=== PATIENT | male | born 1950 | race Caucasian/White ===

== ENCOUNTER 2017-05-06 16:30 | Inpatient (IN) | payer OTHER ==
[~2017-05-06] VITALS: Ht 165.1 cm; Wt 49.6 kg
[2017-05-06] MEDS ORDERED: methylPREDNISolone SOD SUCC PF 125 MG/2 ML VIAL. IV ONE (17:15)
[2017-05-06] MEDS ORDERED: ALBUTEROL SULFATE 2.5 MG/3 ML NEBU. INH ONE (17:15)
[2017-05-06] MEDS ORDERED: IPRATRPIUM/ALBUTEROL 0.5/2.5MG 3 ML NEBU. NEB ONE (17:15)
[2017-05-06 17:29] LABS: BASO # 0.1 x10^3/uL (0.0-0.2); BASO % 1 % (0-3); EOS % 0 % (0-3); HEMATOCRIT 49.4 % (39.0-53.0); HEMOGLOBIN 16.1 g/dL (13.0-17.5); LYMPH # 0.8 x10^3/uL (1.0-4.8); LYMPH % 8 % (24-48); MEAN CORPUSCULAR HEMOGLOBIN 32 pg (25-35); MEAN CORPUSCULAR HGB CONC 33 g/dL (31-37); MEAN CORPUSCULAR VOLUME 97 fL (79-100); MONO % 8 % (0-9); NEUT % 83 % (31-73); PLATELET COUNT 483 x10^3/uL (140-400); RED BLOOD COUNT 5.11 x10^6/uL (4.30-5.70); RED CELL DISTRIBUTION WIDTH 12.8 % (11.5-14.5); WHITE BLOOD COUNT 10.7 x10^3/uL (4.0-11.0)
[2017-05-06 17:40] LABS: PROTHROMBIN TIME PATIENT 12.3 SEC (11.7-14.0)
[2017-05-06 17:42] LABS: CALCIUM 9.8 mg/dL (8.5-10.1); CREATININE 0.6 mg/dL (0.7-1.3); GFR 134.8; POTASSIUM 3.8 mmol/L (3.5-5.1)
[2017-05-06 17:48] LABS: ALBUMIN 3.7 g/dL (3.4-5.0); ALBUMIN/GLOBULIN RATIO 0.9 (1.0-1.7); TOTAL BILIRUBIN 0.3 mg/dL (0.2-1.0)
--- NOTE | 2017-05-06 18:14 | EKG ---
[facility] [address] [place] [address] Test Date: 2017-05-06 Test Time: 18:11:54 Pat Name: ALEXANDRU BAZAN Department: Room: Gender: M Senior Research Associate: TW : 1950 Requested By: ADEEL GALINDO Order Number: [id number] Reading MD: Kevin Vera MD Measurements Intervals [place] Rate: 103 P: 90 NM: 142 QRS: 105 QRSD: 96 T: 67 QT: 352 QTc: 463 Interpretive Statements SINUS TACHYCARDIA NON-SPECIFIC ST/T CHANGES Electronically Signed On 05-09-2017 10:59:02 RESIDENTIAL PROGRAM COORDINATOR by Kevin Vera MD
[2017-05-06] MEDS ORDERED: AZITHRMYCN 500MG IVPB FOR OMNI 250 ML IV ONE (19:45)
[2017-05-06] MEDS ORDERED: ACETAMINOPHEN 325 MG TABLET. PO PRN (19:45)
[2017-05-06] MEDS ORDERED: AZITHROMYCIN 500 MG in IV NORMAL SALINE 250ML 250 ML IV ONE ×2 (19:45→20:00)
[2017-05-06] MEDS ORDERED: ONDANSETRON PF 4 MG/2 ML VIAL. IV PRN (19:45)
[2017-05-06 19:53] VITALS: BP 93/58
[2017-05-06] MEDS ORDERED: guaiFENesin DM 200MG/20MG 10 ML SYRUP PO PRN (20:00)
[2017-05-06] MEDS ORDERED: diphenhydrAMINE HCL 25 MG CAPSULE PO PRN (20:00)
[2017-05-06] MEDS: IPRATRPIUM/ALBUTEROL 0.5/2.5MG 3 ML NEBU. NEB SCH (20:00)
[2017-05-06] MEDS ORDERED: cefTRIAXone IV Push 1 GM VIAL. IVP ONE (20:00)
--- NOTE | 2017-05-06 20:43 | PHYS DOC ---
Past Medical History Past Medical History: COPD Additional Past Medical Histor: EMPHYSEMA Past Surgical History: No Surgical History Additional Information: 1 PPD Alcohol Use: Rarely Drug Use: None Adult General Chief Complaint Chief Complaint: SHORTNESS OF BREATH HPI HPI Patient is a 66 year old male who presents with shortness of breath. Patient reports one week history of progressive dyspnea at rest with wheezing. Reports associated cough productive of white/yellow sputum. Denies fevers or chills, chest pain, lower extremity pain or swelling. He has history of COPD and denies any relief with use of home inhalers. He has history of previous admission for COPD exacerbation. He continues to smoke one pack per day. Denies any history of CAD or CHF. Does not have a primary care physician. He is homeless. Review of Systems Review of Systems Constitutional: Denies fever or chills Eyes: Denies change in visual acuity HENT: Denies nasal congestion or sore throat Respiratory: Port's cough and shortness of breath Cardiovascular: Denies chest pain or edema GI: Denies abdominal pain, nausea, vomiting Musculoskeletal: Denies back pain or joint pain Integument: Denies rash or skin lesions Neurologic: Denies headache, focal weakness or sensory changes All other systems were reviewed and found to be within normal limits, except as documented in this note. Current Medications Current Medications Current Medications Medications (Trade) Dose Ordered Sig/Link Start Time Stop Time Status Last Admin Dose Admin Albuterol Sulfate (Ventolin Neb Soln) 5 mg 1X ONCE 05/06/17 17:15 05/06/17 17:30 DC 05/06/17 17:33 5 MG Albuterol/ Ipratropium (Duoneb) 3 ml 1X ONCE 05/06/17 17:15 05/06/17 17:30 DC 05/06/17 17:32 3 ML Methylprednisolone Sodium Succinate (SOLU-Medrol 125MG VIAL) 125 mg 1X ONCE 05/06/17 17:15 05/06/17 17:30 DC 05/06/17 18:00 125 MG Allergies Allergies Allergies Coded Allergies Type Severity Reaction Last Updated Verified No Known Drug Allergies 05/06/17 No Physical Exam Physical Exam Constitutional: Well developed, well nourished, no acute distress, non-toxic appearance. Poor hygiene HENT: Normocephalic, atraumatic, bilateral external ears normal, oropharynx moist, nose normal. Diffuse dental decay Eyes: conjunctiva normal, no discharge. Neck: supple, no stridor. Cardiovascular: RRR, no murmurs, no edema. Lungs & Thorax: Tight throughout, few expiratory wheezes, LCTAB, no respiratory distress. Abdomen: soft, nontender, nondistended. Skin: Warm, dry, no erythema, no rash. Back: No tenderness. Extremities: No tenderness, no edema. No calf tenderness or swelling. Neurologic: Alert and oriented X 3, no focal deficits noted. Psychologic: Affect normal, judgement normal, mood normal. Current Patient Data Vital Signs Vital Signs Date Time Temp Pulse Resp B/P (MAP) Pulse Ox O2 Delivery O2 Flow Rate FiO2 05/06/17 18:30 100 20 119/79 (92) 93 Nasal Cannula 2.0 05/06/17 16:30 98.2 98.2 Lab Values Laboratory Tests Test 05/06/17 16:47 White Blood Count 10.7 x10^3/uL (4.0-11.0) Red Blood Count 5.11 x10^6/uL (4.30-5.70) Hemoglobin 16.1 g/dL (13.0-17.5) Hematocrit 49.4 % (39.0-53.0) Mean Corpuscular Volume 97 fL (79-100) Mean Corpuscular Hemoglobin 32 pg (25-35) Mean Corpuscular Hemoglobin Concent 33 g/dL (31-37) Red Cell Distribution Width 12.8 % (11.5-14.5) Platelet Count 483 x10^3/uL (140-400) H Neutrophils (%) (Auto) 83 % (31-73) H Lymphocytes (%) (Auto) 8 % (24-48) L Monocytes (%) (Auto) 8 % (0-9) Eosinophils (%) (Auto) 0 % (0-3) Basophils (%) (Auto) 1 % (0-3) Neutrophils # (Auto) 8.9 x10^3uL (1.8-7.7) H Lymphocytes # (Auto) 0.8 x10^3/uL (1.0-4.8) L Monocytes # (Auto) 0.9 x10^3/uL (0.0-1.1) Eosinophils # (Auto) 0.0 x10^3/uL (0.0-0.7) Basophils # (Auto) 0.1 x10^3/uL (0.0-0.2) Prothrombin Time 12.3 SEC (11.7-14.0) Prothrombin Time INR 1.0 (0.8-1.1) PTT 32 SEC (24-38) Sodium Level 143 mmol/L (136-145) Potassium Level 3.8 mmol/L (3.5-5.1) Chloride Level 102 mmol/L (98-107) Carbon Dioxide Level 38 mmol/L (21-32) H Anion Gap 3 (6-14) L Blood Urea Nitrogen 12 mg/dL (8-26) Creatinine 0.6 mg/dL (0.7-1.3) L Estimated GFR (Cockcroft-Gault) 134.8 BUN/Creatinine Ratio 20 (6-20) Glucose Level 62 mg/dL (70-99) L Calcium Level 9.8 mg/dL (8.5-10.1) Total Bilirubin 0.3 mg/dL (0.2-1.0) Aspartate Amino Transferase (AST) 21 U/L (15-37) Alanine Aminotransferase (ALT) 15 U/L (16-63) L Alkaline Phosphatase 123 U/L (46-116) H Troponin I Quantitative < 0.017 ng/mL (0.000-0.055) KD-Saz-N-Type Natriuretic Peptide 120 pg/mL (0-124) Total Protein 8.0 g/dL (6.4-8.2) Albumin 3.7 g/dL (3.4-5.0) Albumin/Globulin Ratio 0.9 (1.0-1.7) L Laboratory Tests 05/06/17 16:47 Laboratory Tests 05/06/17 16:47 EKG EKG Interpreted by me: Sinus tachycardia rate 103, no acute ST or T wave changes, normal intervals, no ectopy.[] Radiology/Procedures Radiology/Procedures CXR, portable: interpreted by me: right middle lobe infiltrate, no cardiomegaly, no pneumothorax, diaphragmatic flattening on the left, elevated right hemidiaphragm.[] Course & Med Decision Making Course & Med Decision Making Pertinent Labs and Imaging studies reviewed. (See chart for details) Presents with COPD exacerbation. Gave DuoNeb and albuterol treatments as well as Solu-Medrol. Obtained labs, EKG, chest x-ray. The patient felt better, lungs less tight on repeat exam. However experiencing oxygen desaturation to 88% on room air while at rest, persistently dyspneic. He is not on home oxygen. Recommend admission for further pulmonary evaluation & treatment. The patient agrees with plan of care. Discussed with Dr. Ricketts who agrees to admit to inpatient status. The patient is admitted in stable condition.[] Dragon Disclaimer Dragon Disclaimer This electronic medical record was generated, in whole or in part, using a voice recognition dictation system. Departure Departure Impression: Primary Impression: COPD exacerbation Disposition: ADMITTED INPATIENT Condition: STABLE ADEEL GALINDO MD May 06, 2017 20:43
[2017-05-07] MEDS ORDERED: PNEUMOCOCCAL VAX SCREEN BY RX. MC ONE
[2017-05-07] MEDS ORDERED: INFLUENZA VAX SCREEN BY RX. MC ONE
[2017-05-07] MEDS ORDERED: PROAIR HFA8.5 GM INH (02:30)
[2017-05-07] MEDS ORDERED: FLUT1DIS3 IH (02:30)
[2017-05-07 03:20] VITALS: BP 100/59
[2017-05-07 06:04] LABS: BASO % 0 % (0-3); EOS % 0 % (0-3); HEMATOCRIT 43.9 % (39.0-53.0); HEMOGLOBIN 14.4 g/dL (13.0-17.5); LYMPH # 0.6 x10^3/uL (1.0-4.8); LYMPH % 12 % (24-48); MEAN CORPUSCULAR HEMOGLOBIN 32 pg (25-35); MEAN CORPUSCULAR HGB CONC 33 g/dL (31-37); MEAN CORPUSCULAR VOLUME 96 fL (79-100); MONO % 3 % (0-9); NEUT % 84 % (31-73); PLATELET COUNT 412 x10^3/uL (140-400); RED BLOOD COUNT 4.57 x10^6/uL (4.30-5.70); WHITE BLOOD COUNT 4.7 x10^3/uL (4.0-11.0)
[2017-05-07 06:40] LABS: CREATININE 0.7 mg/dL (0.7-1.3); GFR 112.8; POTASSIUM 4.4 mmol/L (3.5-5.1)
[2017-05-07 07:08] VITALS: BP 100/62
[2017-05-07] MEDS: IPRATRPIUM/ALBUTEROL 0.5/2.5MG 3 ML NEBU. NEB SCH ×3 (07:52→14:59)
--- NOTE | 2017-05-07 08:08 | RAD ---
EXAM: Chest, single view. HISTORY: Shortness of air. COMPARISON: None. FINDINGS: A frontal view of the chest is obtained. There is emphysema. There is right apical opacity possibly due to pleural parenchymal scarring. There is no effusion or pneumothorax. The heart is normal in size. IMPRESSION: 1. Right apical opacity likely due to pleural-parenchymal scarring. The possibility of a right apical nodule is not excluded. In the absence of prior studies to confirm stability, short-term radiographic or CT follow-up is recommended. 2. Emphysema.
[2017-05-07] MEDS ORDERED: guaiFENesin DM 200MG/20MG 10 ML SYRUP PO PRN (08:45)
[2017-05-07] MEDS ORDERED: ONDANSETRON PF 4 MG/2 ML VIAL. IV PRN (08:45)
[2017-05-07] MEDS ORDERED: PNEUMOC CONJ VACC 23-VALENT 0.5 ML VIAL. VAX IM ONE (09:00)
[2017-05-07] MEDS ORDERED: FLU VACC QS2017-18 (36MOS+)/PF 0.5 ML SYRINGE. VAX IM ONE (09:00)
--- NOTE | 2017-05-07 09:38 | PDOC1 ---
History and Physical Date of Admission Date of Admission DATE: 05/07/17 TIME: 09:32 Identification/Chief Complaint Chief Complaint cough Problems: Source Source: Caregiver, Chart review, Patient History of Present Illness History of Present Illness 66 y.o 2 pack a day smoker male, cough, productive, voluminous in amt , denies fever, still smokes. Was admitted in [facility] [place] [facility] this yr for PNA. WBC ok, no fevers, CXR shows RT apical nodule or scarring (seems new to him), unsure if infiltrate or nodule and some haziness,. Just with my short conversation with him while he was eating breakfast, he coughed signif amt of sputum with signif amt of food in it and took signif time for him to recover and talk to me again, NO blood or hemoptysis,. VEry thin, minimal subQ, smoker's body habitus, Emphysematous changes appreciable on plain CXR Past Medical History Pulmonary: Asthma, Bronchitis Psych: Addictions Musculoskeletal: low back pain Past Surgical History Past Surgical History: No pertinent history Family History Family History: Family History Unknown Social History Smoke: 2 packs per day ALCOHOL: none Drugs: None Current Problem List Problem List Problems Medical Problems: (1) COPD exacerbation Status: Acute Problems: Current Medications Current Medications Current Medications Albuterol/ Ipratropium (Duoneb) 3 ml 1X ONCE NEB Last administered on 17:32; Start 05/06/17 at 17:15; Stop 05/06/17 at 17:30; Status DC Albuterol Sulfate (Ventolin Neb Soln) 5 mg 1X ONCE INH Last administered on 17:33; Start 05/06/17 at 17:15; Stop 05/06/17 at 17:30; Status DC Methylprednisolone Sodium Succinate (SOLU-Medrol 125MG VIAL) 125 mg 1X ONCE IV Last administered on 05/06/17 18:00; Start 05/06/17 at 17:15; Stop at 17:30; Status DC Ondansetron HCl (Zofran) 4 mg PRN Q8HRS PRN IV NAUSEA/VOMITING; Start at 19:45; Stop 05/07/17 at 08:39; Status DC Acetaminophen (Tylenol) 650 mg PRN Q4HRS PRN PO FEVER; Start 05/06/17 at 19:45 ; Stop 05/07/17 at 19:44 Albuterol/ Ipratropium (Duoneb) 3 ml RTQID NEB Last administered on 05/07/17 07:52; Start 05/06/17 at 20:00; Stop 05/07/17 at 19:59 Ceftriaxone Sodium 50 ml @ 100 mls/hr 1X ONCE IV ; Start 05/06/17 at 19:45; Stop 05/06/17 at 20:14; Status Cancel Azithromycin 500 mg/Sodium Chloride 250 ml @ 250 mls/hr 1X ONCE IV ; Start at 19:45; Stop 05/06/17 at 20:44; Status UNV Azithromycin 250 ml @ 250 mls/hr 1X ONCE IV ; Start 05/06/17 at 19:45; Stop 05/06/17 at 20:44; Status Cancel Guaifenesin (Robitussin Dm) 10 ml PRN Q6HRS PRN PO COUGH 1ST CHOICE; Start 04/12 at 20:00 Diphenhydramine HCl (Benadryl) 25 mg PRN QHS PRN PO INSOMNIA; Start 05/06/17 at 20:00 Azithromycin 500 mg/Sodium Chloride 250 ml @ 250 mls/hr 1X ONCE IV Last administered on 05/06/17 20:28; Start 05/06/17 at 20:00; Stop 05/06/17 at 20 :59; Status DC Ceftriaxone Sodium (Rocephin) 1 gm 1X ONCE IVP Last administered on 22:58; Start 05/06/17 at 20:00; Stop 05/06/17 at 20:01; Status DC Info (Do NOT chart on this placeholder) 1 each 1X ONCE MC ; Start 05/07/17 at 00:00; Stop 05/07/17 at 00:01; Status UNV Pneumococcal Polyvalent Vaccine (Do NOT chart on this placeholder) 1 each 1X ONCE MC ; Start 05/07/17 at 00:00; Stop 05/07/17 at 00:01; Status UNV Influenza Virus Vaccine Quadrival (Fluarix Quad 9630-4900 Syringe) 0.5 ml ONCE ONCE VAX IM Last administered on 05/07/17 08:16; Start 05/07/17 at 09:00; Stop 05/07/17 at 09:01; Status DC Pneumococcal Polyvalent Vaccine (Pneumovax 23) 0.5 ml ONCE ONCE VAX IM Last administered on 05/07/17t 08:15; Start 05/07/17 at 09:00; Stop 05/07/17 at 09 :01; Status DC Ondansetron HCl (Zofran) 4 mg PRN Q6HRS PRN IV NAUSEA/VOMITING; Start at 08:45; Stop 05/08/17 at 08:44 Guaifenesin (Robitussin Dm) 10 ml PRN Q6HRS PRN PO COUGH; Start 05/07/17 at 08 :45; Stop 05/07/17 at 08:45; Status DC Active Scripts Active Reported Advair 250-50 Diskus (Fluticasone/Salmeterol) 1 Each Disk.w.dev 1 Inh IH BID Proair Hfa Inhaler (Albuterol Sulfate) 8.5 Gm Hfa.aer.ad 1 Puff INH PRN Q6HRS PRN Allergies Allergies: Coded Allergies: No Known Drug Allergies (Unverified , 05/06/17) ROS General: YES: Fatigue, Other (weight loss??) Eyes: No Blurry vision, No Decreased vision, No Double vision, No Dry eyes, No Excessive tearing, No Eye Pain, No Itchy Eyes, No Loss of vision, No Photophobia , No Scotomata, No Uses contacts, No Uses glasses, No Other ALLERGY AND IMMUNOLOGY: No: Hives, Insect Bite Sensitivity, Itchy/Watery Eyes, Nasal Congestion, Post Nasal Drip, Seasonal Allergies, Other Hematological and Lymphatic: No: Bleeding Problems, Blood Clots, Blood Transfusions, Brusing, Night Sweats, Pallor, Swollen Lymph Nodes, Other ENDOCRINE: No: Breast Changes, Galactorrhea, Hair Pattern Changes, Hot Flashes , Malaise/lethargy, Mood Swings, Palpitations, Polydipsia/polyuria, Skin Changes , Temperature Intolerance, Unexpected Weight Changes, Other Breast: No New/Changing Breast Lumps, No Nipple changes, No Nipple discharge, No Other Respiratory: YES: Cough, Shortness of breath, SOB with excertion, Sputum Changes Cardiovascular: No Chest Pain, No Palpitations, No Orthopnea, No Paroxysmal Noc. Dyspnea, No Edema, No Lt Headedness, No Other Gastrointestinal: No Nausea, No Vomiting, No Abdominal Pain, No Diarrhea, No Constipation, No Melena, No Hematochezia, No Other Genitourinary: No Dysuria, No Frequency, No Incontinence, No Hematuria, No Retention, No Discharge, No Urgency, No Pain, No Flank Pain, No Other, No , No , No , No , No , No , No Musculoskeletal: No Gait Disturbance, No Joint Pain, No Joint Stiffness, No Joint Swelling, No Muscle Pain, No Muscular Weakness, No Pain In:, No Swelling In:, No Other Skin: No Dry Skin, No Eczema, No Hair Changes, No Lumps, No Mole Changes, No Mottling, No Nail Changes, No Pruritus, No Rash, No Skin Lesion Changes, No Other, No Acne Physical Exam General: No acute distress, Other (cachectic, smoker's body habitus, coughing spells) Lungs: Normal air movement, Other (dec BS, no wheezes) Heart: RRR, no thrills, no rubs, no gallops, no murmurs Cardiovascular: S1, S2 Breasts: Normal, Rt breast nml w/o mass, Lt breast nml w/o mass, Nipples normal Abdomen: Normal bowel sounds, Soft, No tenderness, No hepatosplenomegaly, No masses Male Genitals Exam: normal genitalia, normal prostate Rectal Exam: not examined PELVIC: Nml ext genitalia Extremities: No clubbing, No cyanosis, No edema, Normal pulses, No tenderness/ swelling Skin: No rashes, No breakdown, No significant lesion Neuro: Normal gait, Normal speech, Strength at 5/5 X4 ext, Normal tone, Sensation intact, Cranial nerves 3-12 NL, Reflexes 2+ Psych/Mental Status: Mental status NL, Mood NL Vitals Vitals Vital Signs Date Time Temp Pulse Resp B/P (MAP) Pulse Ox O2 Delivery O2 Flow Rate FiO2 05/07/17 08:15 Nasal Cannula 2.0 05/07/17 07:56 98 05/07/17 07:08 98.5 82 18 100/62 (75) 98.5 Labs Labs Laboratory Tests Test 05/06/17 16:47 05/07/17 05:50 White Blood Count 10.7 x10^3/uL (4.0-11.0) 4.7 x10^3/uL (4.0-11.0) Red Blood Count 5.11 x10^6/uL (4.30-5.70) 4.57 x10^6/uL (4.30-5.70) Hemoglobin 16.1 g/dL (13.0-17.5) 14.4 g/dL (13.0-17.5) Hematocrit 49.4 % (39.0-53.0) 43.9 % (39.0-53.0) Mean Corpuscular Volume 97 fL (79-100) 96 fL (79-100) Mean Corpuscular Hemoglobin 32 pg (25-35) 32 pg (25-35) Mean Corpuscular Hemoglobin Concent 33 g/dL (31-37) 33 g/dL (31-37) Red Cell Distribution Width 12.8 % (11.5-14.5) 13.0 % (11.5-14.5) Platelet Count 483 x10^3/uL (140-400) 412 x10^3/uL (140-400) Neutrophils (%) (Auto) 83 % (31-73) 84 % (31-73) Lymphocytes (%) (Auto) 8 % (24-48) 12 % (24-48) Monocytes (%) (Auto) 8 % (0-9) 3 % (0-9) Eosinophils (%) (Auto) 0 % (0-3) 0 % (0-3) Basophils (%) (Auto) 1 % (0-3) 0 % (0-3) Neutrophils # (Auto) 8.9 x10^3uL (1.8-7.7) 3.9 x10^3uL (1.8-7.7) Lymphocytes # (Auto) 0.8 x10^3/uL (1.0-4.8) 0.6 x10^3/uL (1.0-4.8) Monocytes # (Auto) 0.9 x10^3/uL (0.0-1.1) 0.2 x10^3/uL (0.0-1.1) Eosinophils # (Auto) 0.0 x10^3/uL (0.0-0.7) 0.0 x10^3/uL (0.0-0.7) Basophils # (Auto) 0.1 x10^3/uL (0.0-0.2) 0.0 x10^3/uL (0.0-0.2) Prothrombin Time 12.3 SEC (11.7-14.0) Prothromb Time International Ratio 1.0 (0.8-1.1) Activated Partial Thromboplast Time 32 SEC (24-38) Sodium Level 143 mmol/L (136-145) 139 mmol/L (136-145) Potassium Level 3.8 mmol/L (3.5-5.1) 4.4 mmol/L (3.5-5.1) Chloride Level 102 mmol/L (98-107) 102 mmol/L (98-107) Carbon Dioxide Level 38 mmol/L (21-32) 33 mmol/L (21-32) Anion Gap 3 (6-14) 4 (6-14) Blood Urea Nitrogen 12 mg/dL (8-26) 11 mg/dL (8-26) Creatinine 0.6 mg/dL (0.7-1.3) 0.7 mg/dL (0.7-1.3) Estimated GFR (Cockcroft-Gault) 134.8 112.8 BUN/Creatinine Ratio 20 (6-20) Glucose Level 62 mg/dL (70-99) 132 mg/dL (70-99) Calcium Level 9.8 mg/dL (8.5-10.1) 9.0 mg/dL (8.5-10.1) Total Bilirubin 0.3 mg/dL (0.2-1.0) Aspartate Amino Transf (AST/SGOT) 21 U/L (15-37) Alanine Aminotransferase (ALT/SGPT) 15 U/L (16-63) Alkaline Phosphatase 123 U/L (46-116) Troponin I Quantitative < 0.017 ng/mL (0.000-0.055) KS-Vgz-J-Type Natriuretic Peptide 120 pg/mL (0-124) Total Protein 8.0 g/dL (6.4-8.2) Albumin 3.7 g/dL (3.4-5.0) Albumin/Globulin Ratio 0.9 (1.0-1.7) Laboratory Tests Test 05/06/17 16:47 05/07/17 05:50 White Blood Count 10.7 x10^3/uL (4.0-11.0) 4.7 x10^3/uL (4.0-11.0) Red Blood Count 5.11 x10^6/uL (4.30-5.70) 4.57 x10^6/uL (4.30-5.70) Hemoglobin 16.1 g/dL (13.0-17.5) 14.4 g/dL (13.0-17.5) Hematocrit 49.4 % (39.0-53.0) 43.9 % (39.0-53.0) Mean Corpuscular Volume 97 fL (79-100) 96 fL (79-100) Mean Corpuscular Hemoglobin 32 pg (25-35) 32 pg (25-35) Mean Corpuscular Hemoglobin Concent 33 g/dL (31-37) 33 g/dL (31-37) Red Cell Distribution Width 12.8 % (11.5-14.5) 13.0 % (11.5-14.5) Platelet Count 483 x10^3/uL (140-400) 412 x10^3/uL (140-400) Neutrophils (%) (Auto) 83 % (31-73) 84 % (31-73) Lymphocytes (%) (Auto) 8 % (24-48) 12 % (24-48) Monocytes (%) (Auto) 8 % (0-9) 3 % (0-9) Eosinophils (%) (Auto) 0 % (0-3) 0 % (0-3) Basophils (%) (Auto) 1 % (0-3) 0 % (0-3) Neutrophils # (Auto) 8.9 x10^3uL (1.8-7.7) 3.9 x10^3uL (1.8-7.7) Lymphocytes # (Auto) 0.8 x10^3/uL (1.0-4.8) 0.6 x10^3/uL (1.0-4.8) Monocytes # (Auto) 0.9 x10^3/uL (0.0-1.1) 0.2 x10^3/uL (0.0-1.1) Eosinophils # (Auto) 0.0 x10^3/uL (0.0-0.7) 0.0 x10^3/uL (0.0-0.7) Basophils # (Auto) 0.1 x10^3/uL (0.0-0.2) 0.0 x10^3/uL (0.0-0.2) Prothrombin Time 12.3 SEC (11.7-14.0) Prothromb Time International Ratio 1.0 (0.8-1.1) Activated Partial Thromboplast Time 32 SEC (24-38) Sodium Level 143 mmol/L (136-145) 139 mmol/L (136-145) Potassium Level 3.8 mmol/L (3.5-5.1) 4.4 mmol/L (3.5-5.1) Chloride Level 102 mmol/L (98-107) 102 mmol/L (98-107) Carbon Dioxide Level 38 mmol/L (21-32) 33 mmol/L (21-32) Anion Gap 3 (6-14) 4 (6-14) Blood Urea Nitrogen 12 mg/dL (8-26) 11 mg/dL (8-26) Creatinine 0.6 mg/dL (0.7-1.3) 0.7 mg/dL (0.7-1.3) Estimated GFR (Cockcroft-Gault) 134.8 112.8 BUN/Creatinine Ratio 20 (6-20) Glucose Level 62 mg/dL (70-99) 132 mg/dL (70-99) Calcium Level 9.8 mg/dL (8.5-10.1) 9.0 mg/dL (8.5-10.1) Total Bilirubin 0.3 mg/dL (0.2-1.0) Aspartate Amino Transf (AST/SGOT) 21 U/L (15-37) Alanine Aminotransferase (ALT/SGPT) 15 U/L (16-63) Alkaline Phosphatase 123 U/L (46-116) Troponin I Quantitative < 0.017 ng/mL (0.000-0.055) UK-Qzj-W-Type Natriuretic Peptide 120 pg/mL (0-124) Total Protein 8.0 g/dL (6.4-8.2) Albumin 3.7 g/dL (3.4-5.0) Albumin/Globulin Ratio 0.9 (1.0-1.7) VTE Prophylaxis Ordered VTE Prophylaxis Devices: Yes VTE Pharmacological Prophylaxi: Yes Assessment/Plan Assessment/Plan 1. COPD exacerbation, emphysematous type in an active smoker - 2ppday 2. Acute hypoxic respi failure 3. 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 Pulmo nodule apical vs scarring 6. Addiction to nicotine PLAN: Admit [address] chest with IV to further eval CXR findings Nicotine patch PT/OT Nutrition consult Would consult RIB TRIM SEPARATOR given events this AM with me COugh med, neb, Solu 40 IV TD Pulmo Consult Empiric abx Sputum GS and cx - though usually low yield Dw hi asa RN INDIRA Claire MD May 07, 2017 09:38
[2017-05-07] MEDS: guaiFENesin DM 200MG/20MG 10 ML SYRUP PO SCH ×4 (10:12→20:30)
[2017-05-07] MEDS: BENZONATATE 100 MG CAPSULE. PO SCH ×3 (10:12→20:30)
[2017-05-07] MEDS: AZITHROMYCIN 250 MG TABLET. PO SCH (10:12)
[2017-05-07] MEDS: NICOTINE 21MG PATCH. TD PRN (10:13)
[2017-05-07] MEDS: methylPREDNISolone SOD SUCC PF 40 MG/ML VIAL. IV SCH ×3 (10:13→20:30)
[2017-05-07] MEDS ORDERED: CONTRAST GIVEN MC PRN (10:30)
[2017-05-07 10:40] VITALS: BP 110/57
[2017-05-07] MEDS ORDERED: IOHEXOL 300 MG/ML 100ML VIAL. IV ONE (10:45)
--- NOTE | 2017-05-07 11:25 | RAD ---
EXAM: Chest CT with intravenous contrast. HISTORY: Right apical nodule. TECHNIQUE: Computed tomographic images of the chest were obtained following the administration of 75 cc Omnipaque 300 intravenous contrast. Multiplanar reformatting was performed. COMPARISON: Chest radiograph obtained on the same date. FINDINGS: There is a 3.0 cm slightly irregular triangular pleural-based opacity at the posterior right lung apex, the appearance of which favors pleural-parenchymal scarring rather than neoplasm or infiltrate. There is patchy and groundglass nodular infiltrate within the bilateral lower lobes with bilateral lower lobe bronchial wall thickening and mucous plugging. There is no pneumothorax or pleural effusion. There is moderate emphysema. There is a 3 mm nodule within the right middle lobe. There are a few calcified granulomas. The heart is normal in size. No pathologically enlarged lymph node is seen. There is hepatic steatosis. No suspicious osseous lesion is seen. IMPRESSION: 1. 3.0 cm irregular triangular pleural-based opacity at the right lung apex, the appearance of which favors pleural-parenchymal scarring rather than neoplasm or infiltrate. Short-term follow-up in approximately 3 months is recommended to confirm stability. 2. Bilateral lower lobe patchy and groundglass infiltrate with bronchial wall thickening and mucous plugging. Attention at the time of follow-up is recommended to confirm resolution. 3. Emphysema. 4. 3 mm noncalcified nodule within the right middle lobe. Attention at the time of aforementioned short-term follow-up is recommended. PQRS Compliance Statement: One or more of the following individualized dose reduction techniques were utilized for this examination: 1. Automated exposure control 2. Adjustment of the mA and/or kV according to patient size 3. Use of iterative reconstruction technique
--- NOTE | 2017-05-07 13:41 | PDOC ---
PULMONARY PROGRESS NOTES Vitals Vital Signs Date Time Temp Pulse Resp B/P (MAP) Pulse Ox O2 Delivery O2 Flow Rate FiO2 05/07/17 11:31 Nasal Cannula 2.0 05/07/17 10:40 98.6 69 18 110/57 (74) 97 98.6 Cardiovascular: S1, S2 Labs Laboratory Tests Test 05/06/17 16:47 05/07/17 05:50 White Blood Count 10.7 x10^3/uL (4.0-11.0) 4.7 x10^3/uL (4.0-11.0) Red Blood Count 5.11 x10^6/uL (4.30-5.70) 4.57 x10^6/uL (4.30-5.70) Hemoglobin 16.1 g/dL (13.0-17.5) 14.4 g/dL (13.0-17.5) Hematocrit 49.4 % (39.0-53.0) 43.9 % (39.0-53.0) Mean Corpuscular Volume 97 fL (79-100) 96 fL (79-100) Mean Corpuscular Hemoglobin 32 pg (25-35) 32 pg (25-35) Mean Corpuscular Hemoglobin Concent 33 g/dL (31-37) 33 g/dL (31-37) Red Cell Distribution Width 12.8 % (11.5-14.5) 13.0 % (11.5-14.5) Platelet Count 483 x10^3/uL (140-400) 412 x10^3/uL (140-400) Neutrophils (%) (Auto) 83 % (31-73) 84 % (31-73) Lymphocytes (%) (Auto) 8 % (24-48) 12 % (24-48) Monocytes (%) (Auto) 8 % (0-9) 3 % (0-9) Eosinophils (%) (Auto) 0 % (0-3) 0 % (0-3) Basophils (%) (Auto) 1 % (0-3) 0 % (0-3) Neutrophils # (Auto) 8.9 x10^3uL (1.8-7.7) 3.9 x10^3uL (1.8-7.7) Lymphocytes # (Auto) 0.8 x10^3/uL (1.0-4.8) 0.6 x10^3/uL (1.0-4.8) Monocytes # (Auto) 0.9 x10^3/uL (0.0-1.1) 0.2 x10^3/uL (0.0-1.1) Eosinophils # (Auto) 0.0 x10^3/uL (0.0-0.7) 0.0 x10^3/uL (0.0-0.7) Basophils # (Auto) 0.1 x10^3/uL (0.0-0.2) 0.0 x10^3/uL (0.0-0.2) Prothrombin Time 12.3 SEC (11.7-14.0) Prothromb Time International Ratio 1.0 (0.8-1.1) Activated Partial Thromboplast Time 32 SEC (24-38) Sodium Level 143 mmol/L (136-145) 139 mmol/L (136-145) Potassium Level 3.8 mmol/L (3.5-5.1) 4.4 mmol/L (3.5-5.1) Chloride Level 102 mmol/L (98-107) 102 mmol/L (98-107) Carbon Dioxide Level 38 mmol/L (21-32) 33 mmol/L (21-32) Anion Gap 3 (6-14) 4 (6-14) Blood Urea Nitrogen 12 mg/dL (8-26) 11 mg/dL (8-26) Creatinine 0.6 mg/dL (0.7-1.3) 0.7 mg/dL (0.7-1.3) Estimated GFR (Cockcroft-Gault) 134.8 112.8 BUN/Creatinine Ratio 20 (6-20) Glucose Level 62 mg/dL (70-99) 132 mg/dL (70-99) Calcium Level 9.8 mg/dL (8.5-10.1) 9.0 mg/dL (8.5-10.1) Total Bilirubin 0.3 mg/dL (0.2-1.0) Aspartate Amino Transf (AST/SGOT) 21 U/L (15-37) Alanine Aminotransferase (ALT/SGPT) 15 U/L (16-63) Alkaline Phosphatase 123 U/L (46-116) Troponin I Quantitative < 0.017 ng/mL (0.000-0.055) WK-Bqo-Y-Type Natriuretic Peptide 120 pg/mL (0-124) Total Protein 8.0 g/dL (6.4-8.2) Albumin 3.7 g/dL (3.4-5.0) Albumin/Globulin Ratio 0.9 (1.0-1.7) Laboratory Tests Test 05/06/17 16:47 05/07/17 05:50 White Blood Count 10.7 x10^3/uL (4.0-11.0) 4.7 x10^3/uL (4.0-11.0) Red Blood Count 5.11 x10^6/uL (4.30-5.70) 4.57 x10^6/uL (4.30-5.70) Hemoglobin 16.1 g/dL (13.0-17.5) 14.4 g/dL (13.0-17.5) Hematocrit 49.4 % (39.0-53.0) 43.9 % (39.0-53.0) Mean Corpuscular Volume 97 fL (79-100) 96 fL (79-100) Mean Corpuscular Hemoglobin 32 pg (25-35) 32 pg (25-35) Mean Corpuscular Hemoglobin Concent 33 g/dL (31-37) 33 g/dL (31-37) Red Cell Distribution Width 12.8 % (11.5-14.5) 13.0 % (11.5-14.5) Platelet Count 483 x10^3/uL (140-400) 412 x10^3/uL (140-400) Neutrophils (%) (Auto) 83 % (31-73) 84 % (31-73) Lymphocytes (%) (Auto) 8 % (24-48) 12 % (24-48) Monocytes (%) (Auto) 8 % (0-9) 3 % (0-9) Eosinophils (%) (Auto) 0 % (0-3) 0 % (0-3) Basophils (%) (Auto) 1 % (0-3) 0 % (0-3) Neutrophils # (Auto) 8.9 x10^3uL (1.8-7.7) 3.9 x10^3uL (1.8-7.7) Lymphocytes # (Auto) 0.8 x10^3/uL (1.0-4.8) 0.6 x10^3/uL (1.0-4.8) Monocytes # (Auto) 0.9 x10^3/uL (0.0-1.1) 0.2 x10^3/uL (0.0-1.1) Eosinophils # (Auto) 0.0 x10^3/uL (0.0-0.7) 0.0 x10^3/uL (0.0-0.7) Basophils # (Auto) 0.1 x10^3/uL (0.0-0.2) 0.0 x10^3/uL (0.0-0.2) Prothrombin Time 12.3 SEC (11.7-14.0) Prothromb Time International Ratio 1.0 (0.8-1.1) Activated Partial Thromboplast Time 32 SEC (24-38) Sodium Level 143 mmol/L (136-145) 139 mmol/L (136-145) Potassium Level 3.8 mmol/L (3.5-5.1) 4.4 mmol/L (3.5-5.1) Chloride Level 102 mmol/L (98-107) 102 mmol/L (98-107) Carbon Dioxide Level 38 mmol/L (21-32) 33 mmol/L (21-32) Anion Gap 3 (6-14) 4 (6-14) Blood Urea Nitrogen 12 mg/dL (8-26) 11 mg/dL (8-26) Creatinine 0.6 mg/dL (0.7-1.3) 0.7 mg/dL (0.7-1.3) Estimated GFR (Cockcroft-Gault) 134.8 112.8 BUN/Creatinine Ratio 20 (6-20) Glucose Level 62 mg/dL (70-99) 132 mg/dL (70-99) Calcium Level 9.8 mg/dL (8.5-10.1) 9.0 mg/dL (8.5-10.1) Total Bilirubin 0.3 mg/dL (0.2-1.0) Aspartate Amino Transf (AST/SGOT) 21 U/L (15-37) Alanine Aminotransferase (ALT/SGPT) 15 U/L (16-63) Alkaline Phosphatase 123 U/L (46-116) Troponin I Quantitative < 0.017 ng/mL (0.000-0.055) QY-Oid-D-Type Natriuretic Peptide 120 pg/mL (0-124) Total Protein 8.0 g/dL (6.4-8.2) Albumin 3.7 g/dL (3.4-5.0) Albumin/Globulin Ratio 0.9 (1.0-1.7) Medications Active Scripts Medications Dose Route/Sig Max Daily Dose Days Date Category Advair 250-50 Diskus (Fluticasone/Salmeterol) 1 Each Disk.w.dev 1 Inh IH BID 05/07/17 Reported Proair Hfa Inhaler (Albuterol Sulfate) 8.5 Gm Hfa.aer.ad 1 Puff INH PRN Q6HRS PRN 05/07/17 Reported Impression . FULL NOTE DICTATED SPOKE WITH SPEECH WILL PROCEED WITH VIDEO FOLLOW CT IN 3 MONTHS AGREE WITH CURRENT RX ALFREDO MONTGOMERY MD May 07, 2017 13:41
[2017-05-07 15:29] VITALS: BP 108/57
[2017-05-07] MEDS ORDERED: ENOXAPARIN 30 MG/0.3 ML SYRINGE. SQ SCH (16:00)
[2017-05-07 19:51] VITALS: BP 111/52
[2017-05-07] MEDS: LACTOBACILLUS RHAMNOSUS GG 1 CAPSULE. PO SCH (20:30)
[2017-05-07] MEDS: cefTRIAXone IV Push 1 GM VIAL. IVP SCH (20:31)
--- NOTE | 2017-05-07 22:33 | CONS ---
DATE OF CONSULTATION: 05/07/2017 ATTENDING PHYSICIAN: Dr. Ricketts. REASON FOR CONSULTATION: The patient is seen in Pulmonary consultation at the request of Dr. Ricketts for abnormal CT of the chest. HISTORY OF PRESENT ILLNESS: The patient is a 66-year-old male with a history of tobacco use most of his adult life. He is currently homeless. He presented with increasing shortness of breath, cough productive of discolored sputum. He has been treated for pneumonia. Part of his workup included a chest x-ray, which was abnormal. Subsequent CT of the chest was reviewed. There was a 3 cm right upper lobe density that appears to be scarring, with that being said it is certainly possible that this could be the beginning of primary lung cancer. In addition, there is bilateral lower lobe infiltrates. According to the patient, about the possibility of aspiration, he does cough on a daily basis right after he starts to eat. He denies any emesis. No nausea, vomiting, diarrhea. PAST MEDICAL HISTORY: Otherwise unremarkable, tobacco dependent, COPD, previous substance abuse. PAST SURGICAL HISTORY: None. FAMILY HISTORY: The patient does not know his family history. SOCIAL HISTORY: He continues to smoke 2 packs of cigarettes a day. CURRENT MEDICATIONS: List was reviewed. Please see the MRAD. HOME MEDICATIONS: List was likewise reviewed. The patient was utilizing Advair and albuterol. PHYSICAL EXAMINATION: GENERAL: The patient appeared to be older than stated age. VITAL SIGNS: Stable. O2 saturation currently on 2 liters was 94%. HEENT: Eyes, the sclerae were nonicteric. NECK: Jugular venous distention was not elevated. No lymphadenopathy. CHEST: Full expansion. LUNGS: Very poor air flow with no wheezes. CARDIOVASCULAR: Regular rate and rhythm with S1, S2, no S3. ABDOMEN: Soft, nontender, nondistended. EXTREMITIES: No clubbing, cyanosis or edema. LABORATORY DATA: Reviewed. White count was normal. Hemoglobin and hematocrit were noted. CT as indicated above. IMPRESSION: 1. Acute respiratory failure, present upon admission. 2. Acute exacerbation of chronic obstructive pulmonary disease, present upon admission. 3. Abnormal CT of the chest revealing several findings including a 3 cm irregular pleural based density in the right upper lobe. 4. Bibasilar infiltrates compatible with pneumonia, possibly aspiration, Gram-negative. 5. Chronic obstructive pulmonary disease. 6. A 3 mm noncalcified nodule in the right middle lobe. PLAN: 1. Continue current IV antibiotics and breathing treatments. 2. Repeat CT of the chest in 3 months. 3. I spoke with speech therapist, we will proceed with video dysphagia. I do appreciate the privilege in sharing the patient's care. ALFREDO MONTGOMERY MD DR: STEVIE/rufino JOB#: [id number] / [id number]
[2017-05-07] MEDS: ALBUTEROL SULFATE 2.5 MG/3 ML NEBU. NEB PRN (22:59)
[2017-05-07 23:41] VITALS: BP 140/68
[2017-05-08 03:34] VITALS: BP 117/73
[2017-05-08 05:02] LABS: BASO % 0 % (0-3); EOS % 0 % (0-3); HEMATOCRIT 40.4 % (39.0-53.0); HEMOGLOBIN 13.2 g/dL (13.0-17.5); LYMPH # 0.4 x10^3/uL (1.0-4.8); LYMPH % 5 % (24-48); MEAN CORPUSCULAR HEMOGLOBIN 32 pg (25-35); MEAN CORPUSCULAR HGB CONC 33 g/dL (31-37); MEAN CORPUSCULAR VOLUME 97 fL (79-100); MONO % 4 % (0-9); NEUT % 90 % (31-73); PLATELET COUNT 401 x10^3/uL (140-400); RED BLOOD COUNT 4.18 x10^6/uL (4.30-5.70); RED CELL DISTRIBUTION WIDTH 12.6 % (11.5-14.5); WHITE BLOOD COUNT 8.3 x10^3/uL (4.0-11.0)
[2017-05-08] MEDS: methylPREDNISolone SOD SUCC PF 40 MG/ML VIAL. IV SCH ×3 (05:40→21:46)
[2017-05-08 05:56] LABS: ALBUMIN 2.7 g/dL (3.4-5.0); ALBUMIN/GLOBULIN RATIO 0.8 (1.0-1.7); CALCIUM 8.6 mg/dL (8.5-10.1); CREATININE 0.5 mg/dL (0.7-1.3); GFR 166.4; POTASSIUM 4.6 mmol/L (3.5-5.1); TOTAL BILIRUBIN 0.2 mg/dL (0.2-1.0); TOTAL PROTEIN 6.3 g/dL (6.4-8.2)
[2017-05-08 07:58] VITALS: BP 124/71
[2017-05-08] MEDS: BENZONATATE 100 MG CAPSULE. PO SCH ×3 (08:15→21:33)
[2017-05-08] MEDS: LACTOBACILLUS RHAMNOSUS GG 1 CAPSULE. PO SCH ×2 (08:15→21:33)
[2017-05-08] MEDS: AZITHROMYCIN 250 MG TABLET. PO SCH (08:15)
[2017-05-08] MEDS: guaiFENesin DM 200MG/20MG 10 ML SYRUP PO SCH ×4 (08:16→21:33)
[2017-05-08] MEDS: NICOTINE 21MG PATCH. TD PRN (08:16)
[2017-05-08 10:41] LABS: PLT ESTIMATE ADEQUATE (ADEQUATE)
[2017-05-08 10:59] VITALS: BP 106/56
[2017-05-08] MEDS ORDERED: BARIUM SULFATE 40% (APPLE) 148 GM PWD. PO ONE (11:30)
--- NOTE | 2017-05-08 12:35 | RAD ---
EXAM: Video swallow evaluation. HISTORY: Aspiration. COMPARISON: CT dated 05/07/2017. FINDINGS: Fluoroscopic imaging was performed in correlation with the department of speech pathology during the oral administration of barium contrast in multiple consistencies. 0 fluoroscopic spot images were obtained. The total fluoroscopy 3 x 3.7 m. There is significant contrast residual: Minimal likely an performed sinuses with all barium disease. There is deep penetration with residue from barium contrast following swallowing attempts. There is elicitation of a cough reflex following multiple swallowing attempts. The degree of penetration is minimally improved with a chin intact maneuver. IMPRESSION: Significant contrast residual coating the valleculae and performed sinuses and deep penetration of residual contrast following multiple swallowing attempts. This improves minimally with a chin tuck maneuver. Please refer to the report submitted by the department of speech pathology for clinical recommendations.
[2017-05-08 15:04] VITALS: BP 121/74
--- NOTE | 2017-05-08 15:28 | PDOC ---
PULMONARY PROGRESS NOTES Subjective PT BETTER LESS SOA Vitals Vital Signs Date Time Temp Pulse Resp B/P (MAP) Pulse Ox O2 Delivery O2 Flow Rate FiO2 05/08/17 15:04 97.7 98 18 121/74 (90) 96 Room Air 97.7 05/08/17 08:20 2.0 ROS: No Nausea, No Chest Pain, No Abdominal Pain, No Increase Cough General: Alert Lungs: Crackles Cardiovascular: S1, S2 Abdomen: Soft Neuro Exam: Alert Extremities: No Edema Skin: Warm Labs Laboratory Tests Test 05/06/17 16:47 05/07/17 05:50 05/08/17 03:15 05/08/17 03:45 White Blood Count 10.7 x10^3/uL (4.0-11.0) 4.7 x10^3/uL (4.0-11.0) 8.3 x10^3/uL (4.0-11.0) Red Blood Count 5.11 x10^6/uL (4.30-5.70) 4.57 x10^6/uL (4.30-5.70) 4.18 x10^6/uL (4.30-5.70) Hemoglobin 16.1 g/dL (13.0-17.5) 14.4 g/dL (13.0-17.5) 13.2 g/dL (13.0-17.5) Hematocrit 49.4 % (39.0-53.0) 43.9 % (39.0-53.0) 40.4 % (39.0-53.0) Mean Corpuscular Volume 97 fL (79-100) 96 fL (79-100) 97 fL (79-100) Mean Corpuscular Hemoglobin 32 pg (25-35) 32 pg (25-35) 32 pg (25-35) Mean Corpuscular Hemoglobin Concent 33 g/dL (31-37) 33 g/dL (31-37) 33 g/dL (31-37) Red Cell Distribution Width 12.8 % (11.5-14.5) 13.0 % (11.5-14.5) 12.6 % (11.5-14.5) Platelet Count 483 x10^3/uL (140-400) 412 x10^3/uL (140-400) 401 x10^3/uL (140-400) Neutrophils (%) (Auto) 83 % (31-73) 84 % (31-73) 90 % (31-73) Lymphocytes (%) (Auto) 8 % (24-48) 12 % (24-48) 5 % (24-48) Monocytes (%) (Auto) 8 % (0-9) 3 % (0-9) 4 % (0-9) Eosinophils (%) (Auto) 0 % (0-3) 0 % (0-3) 0 % (0-3) Basophils (%) (Auto) 1 % (0-3) 0 % (0-3) 0 % (0-3) Neutrophils # (Auto) 8.9 x10^3uL (1.8-7.7) 3.9 x10^3uL (1.8-7.7) 7.5 x10^3uL (1.8-7.7) Lymphocytes # (Auto) 0.8 x10^3/uL (1.0-4.8) 0.6 x10^3/uL (1.0-4.8) 0.4 x10^3/uL (1.0-4.8) Monocytes # (Auto) 0.9 x10^3/uL (0.0-1.1) 0.2 x10^3/uL (0.0-1.1) 0.3 x10^3/uL (0.0-1.1) Eosinophils # (Auto) 0.0 x10^3/uL (0.0-0.7) 0.0 x10^3/uL (0.0-0.7) 0.0 x10^3/uL (0.0-0.7) Basophils # (Auto) 0.1 x10^3/uL (0.0-0.2) 0.0 x10^3/uL (0.0-0.2) 0.0 x10^3/uL (0.0-0.2) Prothrombin Time 12.3 SEC (11.7-14.0) Prothromb Time International Ratio 1.0 (0.8-1.1) Activated Partial Thromboplast Time 32 SEC (24-38) Sodium Level 143 mmol/L (136-145) 139 mmol/L (136-145) 139 mmol/L (136-145) Potassium Level 3.8 mmol/L (3.5-5.1) 4.4 mmol/L (3.5-5.1) 4.6 mmol/L (3.5-5.1) Chloride Level 102 mmol/L (98-107) 102 mmol/L (98-107) 101 mmol/L (98-107) Carbon Dioxide Level 38 mmol/L (21-32) 33 mmol/L (21-32) 34 mmol/L (21-32) Anion Gap 3 (6-14) 4 (6-14) 4 (6-14) Blood Urea Nitrogen 12 mg/dL (8-26) 11 mg/dL (8-26) 15 mg/dL (8-26) Creatinine 0.6 mg/dL (0.7-1.3) 0.7 mg/dL (0.7-1.3) 0.5 mg/dL (0.7-1.3) Estimated GFR (Cockcroft-Gault) 134.8 112.8 166.4 BUN/Creatinine Ratio 20 (6-20) 30 (6-20) Glucose Level 62 mg/dL (70-99) 132 mg/dL (70-99) 126 mg/dL (70-99) Calcium Level 9.8 mg/dL (8.5-10.1) 9.0 mg/dL (8.5-10.1) 8.6 mg/dL (8.5-10.1) Total Bilirubin 0.3 mg/dL (0.2-1.0) 0.2 mg/dL (0.2-1.0) Aspartate Amino Transf (AST/SGOT) 21 U/L (15-37) 18 U/L (15-37) Alanine Aminotransferase (ALT/SGPT) 15 U/L (16-63) 14 U/L (16-63) Alkaline Phosphatase 123 U/L (46-116) 102 U/L (46-116) Troponin I Quantitative < 0.017 ng/mL (0.000-0.055) ER-Nao-N-Type Natriuretic Peptide 120 pg/mL (0-124) Total Protein 8.0 g/dL (6.4-8.2) 6.3 g/dL (6.4-8.2) Albumin 3.7 g/dL (3.4-5.0) 2.7 g/dL (3.4-5.0) Albumin/Globulin Ratio 0.9 (1.0-1.7) 0.8 (1.0-1.7) Segmented Neutrophils % 90 % (35-66) Band Neutrophils % 3 % (0-9) Lymphocytes % 5 % (24-48) Monocytes % 2 % (0-10) Platelet Estimate Adequate (ADEQUATE) Laboratory Tests Test 05/08/17 03:15 05/08/17 03:45 Sodium Level 139 mmol/L (136-145) Potassium Level 4.6 mmol/L (3.5-5.1) Chloride Level 101 mmol/L (98-107) Carbon Dioxide Level 34 mmol/L (21-32) Anion Gap 4 (6-14) Blood Urea Nitrogen 15 mg/dL (8-26) Creatinine 0.5 mg/dL (0.7-1.3) Estimated GFR (Cockcroft-Gault) 166.4 BUN/Creatinine Ratio 30 (6-20) Glucose Level 126 mg/dL (70-99) Calcium Level 8.6 mg/dL (8.5-10.1) Total Bilirubin 0.2 mg/dL (0.2-1.0) Aspartate Amino Transf (AST/SGOT) 18 U/L (15-37) Alanine Aminotransferase (ALT/SGPT) 14 U/L (16-63) Alkaline Phosphatase 102 U/L (46-116) Total Protein 6.3 g/dL (6.4-8.2) Albumin 2.7 g/dL (3.4-5.0) Albumin/Globulin Ratio 0.8 (1.0-1.7) White Blood Count 8.3 x10^3/uL (4.0-11.0) Red Blood Count 4.18 x10^6/uL (4.30-5.70) Hemoglobin 13.2 g/dL (13.0-17.5) Hematocrit 40.4 % (39.0-53.0) Mean Corpuscular Volume 97 fL (79-100) Mean Corpuscular Hemoglobin 32 pg (25-35) Mean Corpuscular Hemoglobin Concent 33 g/dL (31-37) Red Cell Distribution Width 12.6 % (11.5-14.5) Platelet Count 401 x10^3/uL (140-400) Neutrophils (%) (Auto) 90 % (31-73) Lymphocytes (%) (Auto) 5 % (24-48) Monocytes (%) (Auto) 4 % (0-9) Eosinophils (%) (Auto) 0 % (0-3) Basophils (%) (Auto) 0 % (0-3) Neutrophils # (Auto) 7.5 x10^3uL (1.8-7.7) Lymphocytes # (Auto) 0.4 x10^3/uL (1.0-4.8) Monocytes # (Auto) 0.3 x10^3/uL (0.0-1.1) Eosinophils # (Auto) 0.0 x10^3/uL (0.0-0.7) Basophils # (Auto) 0.0 x10^3/uL (0.0-0.2) Segmented Neutrophils % 90 % (35-66) Band Neutrophils % 3 % (0-9) Lymphocytes % 5 % (24-48) Monocytes % 2 % (0-10) Platelet Estimate Adequate (ADEQUATE) Medications Active Scripts Medications Dose Route/Sig Max Daily Dose Days Date Category Advair 250-50 Diskus (Fluticasone/Salmeterol) 1 Each Disk.w.dev 1 Inh IH BID 05/07/17 Reported Proair Hfa Inhaler (Albuterol Sulfate) 8.5 Gm Hfa.aer.ad 1 Puff INH PRN Q6HRS PRN 05/07/17 Reported Impression . X1. Acute respiratory failure, present upon admission. 2. Acute exacerbation of chronic obstructive pulmonary disease, present upon admission. 3. Abnormal CT of the chest revealing several findings including a 3 cm irregular pleural based density in the right upper lobe. 4. Bibasilar infiltrates compatible with pneumonia, possibly aspiration, Gram-negative. 5. Chronic obstructive pulmonary disease. 6. A 3 mm noncalcified nodule in the right middle lobe. 7. FAILED VIDEO SWALLOW Plan . CONSULT NEURO FOR POSSIBLE NEURO CAUSE FOR DYSPHAGIA 1. Continue current IV antibiotics and breathing treatments. 2. Repeat CT of the chest in 3 months. 3. I spoke with speech therapist, continue diet for now ALFREDO MONTGOMERY MD May 08, 2017 15:28
--- NOTE | 2017-05-08 16:05 | PDOC ---
PROGRESS NOTES Chief Complaint Chief Complaint 1. COPD exacerbation, emphysematous type in an active smoker - 2ppday 2. RT apical scarring unlikely nodule 3. Acute hypoxic respi failure, better 4. SMoker 5. 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 Addiction to nicotine 7. 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 and he is a silent aspirator now on dysphagia with thin liq etc Patient appreciates being updated on his test results Willing to go to rehab if needed, just a concern is his chihuahua at home CT scan reviewed -apical scarring more likely rather than nodule HEavy smoker though - cancelled on it PLAN: CPM Follow ELECTRICIAN YARD recs and pulmo input pT/OT Sw consult for dc SNU needs likely Vitals Vitals Vital Signs Date Time Temp Pulse Resp B/P (MAP) Pulse Ox O2 Delivery O2 Flow Rate FiO2 05/08/17 15:04 97.7 98 18 121/74 (90) 96 Room Air 97.7 05/08/17 08:20 2.0 Physical Exam General: No acute distress, Other (cachectic, smoker's body habitus, coughing spells) Lungs: Crackles Abdomen: Normal bowel sounds, Soft, No tenderness, No hepatosplenomegaly, No masses Extremities: No clubbing, No cyanosis, No edema, Normal pulses, No tenderness/ swelling Skin: No rashes, No breakdown, No significant lesion Labs LABS Laboratory Tests Test 05/08/17 03:15 05/08/17 03:45 Sodium Level 139 mmol/L (136-145) Potassium Level 4.6 mmol/L (3.5-5.1) Chloride Level 101 mmol/L (98-107) Carbon Dioxide Level 34 mmol/L (21-32) Anion Gap 4 (6-14) Blood Urea Nitrogen 15 mg/dL (8-26) Creatinine 0.5 mg/dL (0.7-1.3) Estimated GFR (Cockcroft-Gault) 166.4 BUN/Creatinine Ratio 30 (6-20) Glucose Level 126 mg/dL (70-99) Calcium Level 8.6 mg/dL (8.5-10.1) Total Bilirubin 0.2 mg/dL (0.2-1.0) Aspartate Amino Transf (AST/SGOT) 18 U/L (15-37) Alanine Aminotransferase (ALT/SGPT) 14 U/L (16-63) Alkaline Phosphatase 102 U/L (46-116) Total Protein 6.3 g/dL (6.4-8.2) Albumin 2.7 g/dL (3.4-5.0) Albumin/Globulin Ratio 0.8 (1.0-1.7) White Blood Count 8.3 x10^3/uL (4.0-11.0) Red Blood Count 4.18 x10^6/uL (4.30-5.70) Hemoglobin 13.2 g/dL (13.0-17.5) Hematocrit 40.4 % (39.0-53.0) Mean Corpuscular Volume 97 fL (79-100) Mean Corpuscular Hemoglobin 32 pg (25-35) Mean Corpuscular Hemoglobin Concent 33 g/dL (31-37) Red Cell Distribution Width 12.6 % (11.5-14.5) Platelet Count 401 x10^3/uL (140-400) Neutrophils (%) (Auto) 90 % (31-73) Lymphocytes (%) (Auto) 5 % (24-48) Monocytes (%) (Auto) 4 % (0-9) Eosinophils (%) (Auto) 0 % (0-3) Basophils (%) (Auto) 0 % (0-3) Neutrophils # (Auto) 7.5 x10^3uL (1.8-7.7) Lymphocytes # (Auto) 0.4 x10^3/uL (1.0-4.8) Monocytes # (Auto) 0.3 x10^3/uL (0.0-1.1) Eosinophils # (Auto) 0.0 x10^3/uL (0.0-0.7) Basophils # (Auto) 0.0 x10^3/uL (0.0-0.2) Segmented Neutrophils % 90 % (35-66) Band Neutrophils % 3 % (0-9) Lymphocytes % 5 % (24-48) Monocytes % 2 % (0-10) Platelet Estimate Adequate (ADEQUATE) Review of Systems Review of Systems denies 14 pt, aside form HPI, cough, no fevers, no inc in soa, no abd pain Assessment and Plan Assessmemt and Plan Problems Medical Problems: (1) COPD exacerbation Status: Acute Problems: Comment Review of Relevant I have reviewed the following items rigo (where applicable) has been applied. Labs Laboratory Tests Test 05/06/17 16:47 05/07/17 05:50 05/08/17 03:15 05/08/17 03:45 White Blood Count 10.7 x10^3/uL (4.0-11.0) 4.7 x10^3/uL (4.0-11.0) 8.3 x10^3/uL (4.0-11.0) Red Blood Count 5.11 x10^6/uL (4.30-5.70) 4.57 x10^6/uL (4.30-5.70) 4.18 x10^6/uL (4.30-5.70) Hemoglobin 16.1 g/dL (13.0-17.5) 14.4 g/dL (13.0-17.5) 13.2 g/dL (13.0-17.5) Hematocrit 49.4 % (39.0-53.0) 43.9 % (39.0-53.0) 40.4 % (39.0-53.0) Mean Corpuscular Volume 97 fL (79-100) 96 fL (79-100) 97 fL (79-100) Mean Corpuscular Hemoglobin 32 pg (25-35) 32 pg (25-35) 32 pg (25-35) Mean Corpuscular Hemoglobin Concent 33 g/dL (31-37) 33 g/dL (31-37) 33 g/dL (31-37) Red Cell Distribution Width 12.8 % (11.5-14.5) 13.0 % (11.5-14.5) 12.6 % (11.5-14.5) Platelet Count 483 x10^3/uL (140-400) 412 x10^3/uL (140-400) 401 x10^3/uL (140-400) Neutrophils (%) (Auto) 83 % (31-73) 84 % (31-73) 90 % (31-73) Lymphocytes (%) (Auto) 8 % (24-48) 12 % (24-48) 5 % (24-48) Monocytes (%) (Auto) 8 % (0-9) 3 % (0-9) 4 % (0-9) Eosinophils (%) (Auto) 0 % (0-3) 0 % (0-3) 0 % (0-3) Basophils (%) (Auto) 1 % (0-3) 0 % (0-3) 0 % (0-3) Neutrophils # (Auto) 8.9 x10^3uL (1.8-7.7) 3.9 x10^3uL (1.8-7.7) 7.5 x10^3uL (1.8-7.7) Lymphocytes # (Auto) 0.8 x10^3/uL (1.0-4.8) 0.6 x10^3/uL (1.0-4.8) 0.4 x10^3/uL (1.0-4.8) Monocytes # (Auto) 0.9 x10^3/uL (0.0-1.1) 0.2 x10^3/uL (0.0-1.1) 0.3 x10^3/uL (0.0-1.1) Eosinophils # (Auto) 0.0 x10^3/uL (0.0-0.7) 0.0 x10^3/uL (0.0-0.7) 0.0 x10^3/uL (0.0-0.7) Basophils # (Auto) 0.1 x10^3/uL (0.0-0.2) 0.0 x10^3/uL (0.0-0.2) 0.0 x10^3/uL (0.0-0.2) Prothrombin Time 12.3 SEC (11.7-14.0) Prothromb Time International Ratio 1.0 (0.8-1.1) Activated Partial Thromboplast Time 32 SEC (24-38) Sodium Level 143 mmol/L (136-145) 139 mmol/L (136-145) 139 mmol/L (136-145) Potassium Level 3.8 mmol/L (3.5-5.1) 4.4 mmol/L (3.5-5.1) 4.6 mmol/L (3.5-5.1) Chloride Level 102 mmol/L (98-107) 102 mmol/L (98-107) 101 mmol/L (98-107) Carbon Dioxide Level 38 mmol/L (21-32) 33 mmol/L (21-32) 34 mmol/L (21-32) Anion Gap 3 (6-14) 4 (6-14) 4 (6-14) Blood Urea Nitrogen 12 mg/dL (8-26) 11 mg/dL (8-26) 15 mg/dL (8-26) Creatinine 0.6 mg/dL (0.7-1.3) 0.7 mg/dL (0.7-1.3) 0.5 mg/dL (0.7-1.3) Estimated GFR (Cockcroft-Gault) 134.8 112.8 166.4 BUN/Creatinine Ratio 20 (6-20) 30 (6-20) Glucose Level 62 mg/dL (70-99) 132 mg/dL (70-99) 126 mg/dL (70-99) Calcium Level 9.8 mg/dL (8.5-10.1) 9.0 mg/dL (8.5-10.1) 8.6 mg/dL (8.5-10.1) Total Bilirubin 0.3 mg/dL (0.2-1.0) 0.2 mg/dL (0.2-1.0) Aspartate Amino Transf (AST/SGOT) 21 U/L (15-37) 18 U/L (15-37) Alanine Aminotransferase (ALT/SGPT) 15 U/L (16-63) 14 U/L (16-63) Alkaline Phosphatase 123 U/L (46-116) 102 U/L (46-116) Troponin I Quantitative < 0.017 ng/mL (0.000-0.055) FZ-Lry-S-Type Natriuretic Peptide 120 pg/mL (0-124) Total Protein 8.0 g/dL (6.4-8.2) 6.3 g/dL (6.4-8.2) Albumin 3.7 g/dL (3.4-5.0) 2.7 g/dL (3.4-5.0) Albumin/Globulin Ratio 0.9 (1.0-1.7) 0.8 (1.0-1.7) Segmented Neutrophils % 90 % (35-66) Band Neutrophils % 3 % (0-9) Lymphocytes % 5 % (24-48) Monocytes % 2 % (0-10) Platelet Estimate Adequate (ADEQUATE) Laboratory Tests Test 05/08/17 03:15 05/08/17 03:45 Sodium Level 139 mmol/L (136-145) Potassium Level 4.6 mmol/L (3.5-5.1) Chloride Level 101 mmol/L (98-107) Carbon Dioxide Level 34 mmol/L (21-32) Anion Gap 4 (6-14) Blood Urea Nitrogen 15 mg/dL (8-26) Creatinine 0.5 mg/dL (0.7-1.3) Estimated GFR (Cockcroft-Gault) 166.4 BUN/Creatinine Ratio 30 (6-20) Glucose Level 126 mg/dL (70-99) Calcium Level 8.6 mg/dL (8.5-10.1) Total Bilirubin 0.2 mg/dL (0.2-1.0) Aspartate Amino Transf (AST/SGOT) 18 U/L (15-37) Alanine Aminotransferase (ALT/SGPT) 14 U/L (16-63) Alkaline Phosphatase 102 U/L (46-116) Total Protein 6.3 g/dL (6.4-8.2) Albumin 2.7 g/dL (3.4-5.0) Albumin/Globulin Ratio 0.8 (1.0-1.7) White Blood Count 8.3 x10^3/uL (4.0-11.0) Red Blood Count 4.18 x10^6/uL (4.30-5.70) Hemoglobin 13.2 g/dL (13.0-17.5) Hematocrit 40.4 % (39.0-53.0) Mean Corpuscular Volume 97 fL (79-100) Mean Corpuscular Hemoglobin 32 pg (25-35) Mean Corpuscular Hemoglobin Concent 33 g/dL (31-37) Red Cell Distribution Width 12.6 % (11.5-14.5) Platelet Count 401 x10^3/uL (140-400) Neutrophils (%) (Auto) 90 % (31-73) Lymphocytes (%) (Auto) 5 % (24-48) Monocytes (%) (Auto) 4 % (0-9) Eosinophils (%) (Auto) 0 % (0-3) Basophils (%) (Auto) 0 % (0-3) Neutrophils # (Auto) 7.5 x10^3uL (1.8-7.7) Lymphocytes # (Auto) 0.4 x10^3/uL (1.0-4.8) Monocytes # (Auto) 0.3 x10^3/uL (0.0-1.1) Eosinophils # (Auto) 0.0 x10^3/uL (0.0-0.7) Basophils # (Auto) 0.0 x10^3/uL (0.0-0.2) Segmented Neutrophils % 90 % (35-66) Band Neutrophils % 3 % (0-9) Lymphocytes % 5 % (24-48) Monocytes % 2 % (0-10) Platelet Estimate Adequate (ADEQUATE) Medications Current Medications Albuterol/ Ipratropium (Duoneb) 3 ml 1X ONCE NEB Last administered on 17:32; Start 05/06/17 at 17:15; Stop 05/06/17 at 17:30; Status DC Albuterol Sulfate (Ventolin Neb Soln) 5 mg 1X ONCE INH Last administered on 17:33; Start 05/06/17 at 17:15; Stop 05/06/17 at 17:30; Status DC Methylprednisolone Sodium Succinate (SOLU-Medrol 125MG VIAL) 125 mg 1X ONCE IV Last administered on 05/06/17 18:00; Start 05/06/17 at 17:15; Stop at 17:30; Status DC Ondansetron HCl (Zofran) 4 mg PRN Q8HRS PRN IV NAUSEA/VOMITING; Start at 19:45; Stop 05/07/17 at 08:39; Status DC Acetaminophen (Tylenol) 650 mg PRN Q4HRS PRN PO FEVER; Start 05/06/17 at 19:45 ; Stop 05/07/17 at 19:44; Status DC Albuterol/ Ipratropium (Duoneb) 3 ml RTQID NEB Last administered on 05/07/17 14:59; Start 05/06/17 at 20:00; Stop 05/07/17 at 19:59; Status DC Ceftriaxone Sodium 50 ml @ 100 mls/hr 1X ONCE IV ; Start 05/06/17 at 19:45; Stop 05/06/17 at 20:14; Status Cancel Azithromycin 500 mg/Sodium Chloride 250 ml @ 250 mls/hr 1X ONCE IV ; Start at 19:45; Stop 05/06/17 at 20:44; Status UNV Azithromycin 250 ml @ 250 mls/hr 1X ONCE IV ; Start 05/06/17 at 19:45; Stop 05/06/17 at 20:44; Status Cancel Guaifenesin (Robitussin Dm) 10 ml PRN Q6HRS PRN PO COUGH 1ST CHOICE; Start 04/12 at 20:00; Stop 05/07/17 at 09:32; Status DC Diphenhydramine HCl (Benadryl) 25 mg PRN QHS PRN PO INSOMNIA; Start 05/06/17 at 20:00 Azithromycin 500 mg/Sodium Chloride 250 ml @ 250 mls/hr 1X ONCE IV Last administered on 05/06/17 20:28; Start 05/06/17 at 20:00; Stop 05/06/17 at 20 :59; Status DC Ceftriaxone Sodium (Rocephin) 1 gm 1X ONCE IVP Last administered on 22:58; Start 05/06/17 at 20:00; Stop 05/06/17 at 20:01; Status DC Info (Do NOT chart on this placeholder) 1 each 1X ONCE MC ; Start 05/07/17 at 00:00; Stop 05/07/17 at 00:01; Status UNV Pneumococcal Polyvalent Vaccine (Do NOT chart on this placeholder) 1 each 1X ONCE MC ; Start 05/07/17 at 00:00; Stop 05/07/17 at 00:01; Status UNV Influenza Virus Vaccine Quadrival (Fluarix Quad 4059-2413 Syringe) 0.5 ml ONCE ONCE VAX IM Last administered on 05/07/17 08:16; Start 05/07/17 at 09:00; Stop 05/07/17 at 09:01; Status DC Pneumococcal Polyvalent Vaccine (Pneumovax 23) 0.5 ml ONCE ONCE VAX IM Last administered on 05/07/17 08:15; Start 05/07/17 at 09:00; Stop 05/07/17 at 09 :01; Status DC Ondansetron HCl (Zofran) 4 mg PRN Q6HRS PRN IV NAUSEA/VOMITING; Start at 08:45; Stop 05/08/17 at 08:44; Status DC Guaifenesin (Robitussin Dm) 10 ml PRN Q6HRS PRN PO COUGH; Start 05/07/17 at 08 :45; Stop 05/07/17 at 08:45; Status DC Guaifenesin (Robitussin Dm) 10 ml QID PO Last administered on 05/08/17 13:48 ; Start 05/07/17 at 10:00 Nicotine (Nicoderm Cq 21mg) 1 patch PRN DAILY PRN TD SMOKING CESSATION Last administered on 05/08/17 08:16; Start 05/07/17 at 09:30 Ceftriaxone Sodium 1 gm/ Dextrose 50 ml @ 100 mls/hr Q24H IV ; Start 05/07/17 at 09:30; Status UNV Azithromycin (Zithromax) 250 mg DAILY PO Last administered on 05/08/17 08:15 ; Start 05/07/17 at 10:00 Benzonatate (Tessalon Perle) 100 mg [id number] PO Last administered on 05/08/17 13:48; Start 05/07/17 at 10:00 Enoxaparin Sodium (Lovenox 30mg Syringe) 30 mg Q24H SQ Last administered on 17:45; Start 05/07/17 at 16:00; Stop 05/08/17 at 13:22; Status DC Methylprednisolone Sodium Succinate (SOLU-Medrol 40MG VIAL) 40 mg Q8HRS IV Last administered on 05/08/17 13:48; Start 05/07/17 at 10:00 Ceftriaxone Sodium (Rocephin) 1 gm Q24H IVP Last administered on 05/07/17 20: 31; Start 05/07/17 at 21:00 Iohexol (Omnipaque 300 Mg/ml) 75 ml 1X ONCE IV Last administered on 11:02; Start 05/07/17 at 10:45; Stop 05/07/17 at 10:46; Status DC Info (Do NOT chart on this entry -- for MONITORING) 1 each PRN DAILY PRN MC SEE COMMENTS; Start 05/07/17 at 10:30; Stop 05/09/17 at 10:29 Lactobacillus Rhamnosus (Culturelle) 1 cap BID PO Last administered on 08:15; Start 05/07/17 at 21:00 Albuterol Sulfate (Ventolin Neb Soln) 2.5 mg PRN Q2HR PRN NEB SHORTNESS OF BREATH Last administered on 05/07/17 22:59; Start 05/07/17 at 23:00 Barium Sulfate (Varibar Thin Liquid Apple) 148 gm 1X ONCE PO Last administered on 05/08/17 12:19; Start 05/08/17 at 11:30; Stop 05/08/17 at 11 :31; Status DC Enoxaparin Sodium (Lovenox 40mg Syringe) 40 mg Q24H SQ ; Start 05/08/17 at 16: 00 Active Scripts Active Reported Advair 250-50 Diskus (Fluticasone/Salmeterol) 1 Each Disk.w.dev 1 Inh IH BID Proair Hfa Inhaler (Albuterol Sulfate) 8.5 Gm Hfa.aer.ad 1 Puff INH PRN Q6HRS PRN Vitals/I & O Vital Sign - Last 24 Hours 05/07/17 05/07/17 05/07/17 05/07/17 19:51 20:00 23:00 23:41 Temp 98.3 98.8 98.3 98.8 Pulse 102 102 Resp 20 20 B/P (MAP) 111/52 (71) 140/68 (92) Pulse Ox 95 96 O2 Delivery Nasal Cannula Nasal Cannula Nasal Cannula Nasal Cannula O2 Flow Rate 2.0 2.0 2.0 2.0 05/08/17 05/08/17 05/08/17 05/08/17 03:34 07:58 08:20 10:59 Temp 98.2 99.0 97.9 98.2 99.0 97.9 Pulse 89 90 101 Resp 20 20 18 B/P (MAP) 117/73 (88) 124/71 (88) 106/56 (73) Pulse Ox 97 96 97 O2 Delivery Room Air Room Air Nasal Cannula Room Air O2 Flow Rate 2.0 05/08/17 15:04 Temp 97.7 97.7 Pulse 98 Resp 18 B/P (MAP) 121/74 (90) Pulse Ox 96 O2 Delivery Room Air INDIRA STEELE MD May 08, 2017 16:05
[2017-05-08] MEDS: ENOXAPARIN 40 MG/0.4 ML SYRINGE. SQ SCH (17:11)
[2017-05-08 19:00] VITALS: BP 116/60
[2017-05-08] MEDS: ALBUTEROL SULFATE 2.5 MG/3 ML NEBU. NEB PRN (20:31)
[2017-05-08] MEDS: cefTRIAXone IV Push 1 GM VIAL. IVP SCH (21:33)
[2017-05-08 22:57] VITALS: BP 117/80
[2017-05-09] VITALS (7 sets, daily range): BP systolic 116–135; BP diastolic 74–89
[2017-05-09] MEDS: methylPREDNISolone SOD SUCC PF 40 MG/ML VIAL. IV SCH ×3 (05:22→21:03)
--- NOTE | 2017-05-09 09:04 | PDOC ---
PULMONARY PROGRESS NOTES Subjective PT BETTER LESS SOA Vitals Vital Signs Date Time Temp Pulse Resp B/P (MAP) Pulse Ox O2 Delivery O2 Flow Rate FiO2 05/09/17 07:00 98.3 81 20 123/74 (90) 96 Room Air 98.3 05/08/17 20:31 2.0 ROS: No Nausea, No Chest Pain, No Abdominal Pain, No Increase Cough General: Alert, No acute distress Lungs: Clear, Other (poor air flow) Cardiovascular: S1, S2 Abdomen: Soft Neuro Exam: Alert Extremities: No Edema Skin: Warm Labs Laboratory Tests Test 05/08/17 03:15 05/08/17 03:45 Sodium Level 139 mmol/L (136-145) Potassium Level 4.6 mmol/L (3.5-5.1) Chloride Level 101 mmol/L (98-107) Carbon Dioxide Level 34 mmol/L (21-32) Anion Gap 4 (6-14) Blood Urea Nitrogen 15 mg/dL (8-26) Creatinine 0.5 mg/dL (0.7-1.3) Estimated GFR (Cockcroft-Gault) 166.4 BUN/Creatinine Ratio 30 (6-20) Glucose Level 126 mg/dL (70-99) Calcium Level 8.6 mg/dL (8.5-10.1) Total Bilirubin 0.2 mg/dL (0.2-1.0) Aspartate Amino Transf (AST/SGOT) 18 U/L (15-37) Alanine Aminotransferase (ALT/SGPT) 14 U/L (16-63) Alkaline Phosphatase 102 U/L (46-116) Total Protein 6.3 g/dL (6.4-8.2) Albumin 2.7 g/dL (3.4-5.0) Albumin/Globulin Ratio 0.8 (1.0-1.7) White Blood Count 8.3 x10^3/uL (4.0-11.0) Red Blood Count 4.18 x10^6/uL (4.30-5.70) Hemoglobin 13.2 g/dL (13.0-17.5) Hematocrit 40.4 % (39.0-53.0) Mean Corpuscular Volume 97 fL (79-100) Mean Corpuscular Hemoglobin 32 pg (25-35) Mean Corpuscular Hemoglobin Concent 33 g/dL (31-37) Red Cell Distribution Width 12.6 % (11.5-14.5) Platelet Count 401 x10^3/uL (140-400) Neutrophils (%) (Auto) 90 % (31-73) Lymphocytes (%) (Auto) 5 % (24-48) Monocytes (%) (Auto) 4 % (0-9) Eosinophils (%) (Auto) 0 % (0-3) Basophils (%) (Auto) 0 % (0-3) Neutrophils # (Auto) 7.5 x10^3uL (1.8-7.7) Lymphocytes # (Auto) 0.4 x10^3/uL (1.0-4.8) Monocytes # (Auto) 0.3 x10^3/uL (0.0-1.1) Eosinophils # (Auto) 0.0 x10^3/uL (0.0-0.7) Basophils # (Auto) 0.0 x10^3/uL (0.0-0.2) Segmented Neutrophils % 90 % (35-66) Band Neutrophils % 3 % (0-9) Lymphocytes % 5 % (24-48) Monocytes % 2 % (0-10) Platelet Estimate Adequate (ADEQUATE) Medications Active Scripts Medications Dose Route/Sig Max Daily Dose Days Date Category Advair 250-50 Diskus (Fluticasone/Salmeterol) 1 Each Disk.w.dev 1 Inh IH BID 05/07/17 Reported Proair Hfa Inhaler (Albuterol Sulfate) 8.5 Gm Hfa.aer.ad 1 Puff INH PRN Q6HRS PRN 05/07/17 Reported Impression . X1. Acute respiratory failure, present upon admission. 2. Acute exacerbation of chronic obstructive pulmonary disease, present upon admission. 3. Abnormal CT of the chest revealing several findings including a 3 cm irregular pleural based density in the right upper lobe. 4. Bibasilar infiltrates compatible with pneumonia, possibly aspiration, Gram-negative. 5. Chronic obstructive pulmonary disease. 6. A 3 mm noncalcified nodule in the right middle lobe. Plan . 1. Continue current IV antibiotics and breathing treatments. 2. Repeat CT of the chest in 3 months. 3. f/u speech therapist, PO diet 4. Needs help. Homeless, lives in his car JOSE CHRISTIANSON MD May 09, 2017 09:04
[2017-05-09] MEDS: LACTOBACILLUS RHAMNOSUS GG 1 CAPSULE. PO SCH ×2 (09:22→20:57)
[2017-05-09] MEDS: guaiFENesin DM 200MG/20MG 10 ML SYRUP PO SCH ×4 (09:24→20:57)
[2017-05-09] MEDS: AZITHROMYCIN 250 MG TABLET. PO SCH (09:24)
[2017-05-09] MEDS: BENZONATATE 100 MG CAPSULE. PO SCH ×3 (09:24→20:57)
[2017-05-09] MEDS: NICOTINE 21MG PATCH. TD PRN (09:26)
--- NOTE | 2017-05-09 17:22 | PDOC ---
PROGRESS NOTES Chief Complaint Chief Complaint Acute hypoxic respir failure ASSESSMENT AND PLAN: 1. COPD exacerbation: remains O2 dependent at this time 2. Tobaccoism: cont to smoke 2 ppd. cessation strongly encouraged. on patch 3. (?aspiration) PNA: on ceftriax, azithro 4. Dysphagia: silent aspiration on swallow study; rec. for "cont. regular diet w/ thin liquids and use of swallow strategies." 5. Cachexia with severe PCM: most likely 2/2 severe COPD. supplements 6. Dispo: SNF for PT/SP History of Present Illness History of Present Illness SOB, c/o too many people coming into his room Vitals Vitals Vital Signs Date Time Temp Pulse Resp B/P (MAP) Pulse Ox O2 Delivery O2 Flow Rate FiO2 05/09/17 15:30 98.4 95 22 135/82 (99) 96 Nasal Cannula 2.0 98.4 Physical Exam General: Alert, Oriented X3, No acute distress, Other (cachectic, smoker's body habitus, coughing spells) Heart: Regular rate Lungs: Clear, Other (poor air flow) Abdomen: Normal bowel sounds, Soft, No tenderness Extremities: No clubbing Skin: No rashes Assessment and Plan Assessmemt and Plan Problems Medical Problems: (1) COPD exacerbation Status: Acute Problems: Nutrition Consultation Dietary Evaluation: Recommendations by RD: Increase Calorie Intake, Protein supplementation Comments: provide ensure tid for optimum nutrition Expected Outcomes/Goals: to meet > 75% est nutr needs Malnutrition Findings: Body Fat Depletion (Non Severe: Mild Depletion Weight Status: Underweight PAUL SIMMONS MD May 09, 2017 17:22
[2017-05-09] MEDS: ENOXAPARIN 40 MG/0.4 ML SYRINGE. SQ SCH (17:58)
[2017-05-09] MEDS: cefTRIAXone IV Push 1 GM VIAL. IVP SCH (20:58)
[2017-05-10 03:40] VITALS: BP 117/74
[2017-05-10] MEDS: methylPREDNISolone SOD SUCC PF 40 MG/ML VIAL. IV SCH ×2 (05:27→14:19)
[2017-05-10 07:55] VITALS: BP 116/74
[2017-05-10] MEDS: ALBUTEROL SULFATE 2.5 MG/3 ML NEBU. NEB PRN (08:19)
[2017-05-10] MEDS: guaiFENesin DM 200MG/20MG 10 ML SYRUP PO SCH ×4 (09:09→21:00)
[2017-05-10] MEDS: BENZONATATE 100 MG CAPSULE. PO SCH ×3 (09:09→21:00)
[2017-05-10] MEDS: AZITHROMYCIN 250 MG TABLET. PO SCH (09:09)
--- NOTE | 2017-05-10 10:41 | PDOC ---
PROGRESS NOTES Chief Complaint Chief Complaint Acute hypoxic respir failure ASSESSMENT AND PLAN: 1. COPD exacerbation: remains O2 dependent at this time 2. Tobaccoism: cont to smoke 2 ppd. cessation strongly encouraged. on patch 3. (?aspiration) PNA: on ceftriax, azithro 4. Dysphagia: silent aspiration on swallow study; SP rec. for "cont. regular diet w/ thin liquids and use of swallow strategies." d/w SP: appears incongruent with COPD effects; neuro consult requested 5. Cachexia with severe PCM: most likely 2/2 severe COPD. supplements 6. Dispo: SNF for PT/SP History of Present Illness History of Present Illness dyspneic; has not received scheduled duonebs. no pain Vitals Vitals Vital Signs Date Time Temp Pulse Resp B/P (MAP) Pulse Ox O2 Delivery O2 Flow Rate FiO2 05/10/17 08:20 98 Nasal Cannula 2.0 05/10/17 07:55 98.5 83 18 116/74 (88) 98.5 Physical Exam General: Alert, Oriented X3, No acute distress, Other (cachectic, smoker's body habitus, coughing spells) Heart: Regular rate Lungs: Clear, Other (poor air flow) Abdomen: Normal bowel sounds, Soft, No tenderness Extremities: No clubbing Skin: No rashes Nutrition Consultation Dietary Evaluation: Recommendations by RD: Increase Calorie Intake, Protein supplementation Comments: provide ensure tid for optimum nutrition Expected Outcomes/Goals: to meet > 75% est nutr needs Malnutrition Findings: Body Fat Depletion (Non Severe: Mild Depletion Weight Status: Underweight PAUL SIMMONS MD May 10, 2017 10:41
[2017-05-10 11:24] VITALS: BP 108/62
--- NOTE | 2017-05-10 13:40 | PDOC ---
PULMONARY PROGRESS NOTES Subjective PT BETTER LESS SOA Vitals Vital Signs Date Time Temp Pulse Resp B/P (MAP) Pulse Ox O2 Delivery O2 Flow Rate FiO2 05/10/17 11:24 98.1 110 18 108/62 (77) 97 Nasal Cannula 2.0 98.1 ROS: No Nausea, No Chest Pain, No Abdominal Pain, No Increase Cough General: Alert, No acute distress Lungs: Other (poor air flow) Cardiovascular: S1, S2 Abdomen: Soft Neuro Exam: Alert Extremities: No Edema Skin: Warm Medications Active Scripts Medications Dose Route/Sig Max Daily Dose Days Date Category Advair 250-50 Diskus (Fluticasone/Salmeterol) 1 Each Disk.w.dev 1 Inh IH BID 05/07/17 Reported Proair Hfa Inhaler (Albuterol Sulfate) 8.5 Gm Hfa.aer.ad 1 Puff INH PRN Q6HRS PRN 05/07/17 Reported Impression . 1. Acute respiratory failure, present upon admission. 2. Acute exacerbation of chronic obstructive pulmonary disease, present upon admission. 3. Abnormal CT of the chest revealing several findings including a 3 cm irregular pleural based density in the right upper lobe. 3 mm noncalcified nodule in the right middle lobe. 4. Bibasilar infiltrates compatible with pneumonia, possibly aspiration, Gram-negative. 5. Chronic obstructive pulmonary disease. Plan . 1. Continue current IV antibiotics and breathing treatments. 2. Repeat CT of the chest in 3 months. 3. f/u speech therapist, PO diet 4. Needs SS help. Homeless, lives in his car 5. f/u with Tiffani Sands in office with ct chest prior (aug 16, 11.30 am) JOSE CHRISTIANSON MD May 10, 2017 13:40
[2017-05-10] MEDS: LACTOBACILLUS RHAMNOSUS GG 1 CAPSULE. PO SCH ×2 (14:18→21:00)
[2017-05-10 14:49] VITALS: BP 122/75
[2017-05-10] MEDS: ENOXAPARIN 40 MG/0.4 ML SYRINGE. SQ SCH (16:43)
[2017-05-10] MEDS: NICOTINE 21MG PATCH. TD PRN (16:43)
[2017-05-10] MEDS: IPRATRPIUM/ALBUTEROL 0.5/2.5MG 3 ML NEBU. NEB SCH ×2 (18:12→20:00)
[2017-05-10 19:43] VITALS: BP 120/76
--- NOTE | 2017-05-10 19:56 | PDOC2 ---
NEUROLOGY CONSULT Date of Admission Date of Admission DATE: 05/10/17 TIME: 19:45 Reason for Consult Reason for Consult: IMPRESSION: Chronic dysphagia x 1 year, worse in recent months. SOB COPD Substance use/abuse. RECOMMENDATIONS/PLAN: Brain and C-spine MRI w/wo contrast. lab: see orders. MG panel maybe needed but wait for other studies first. Swallow evaluation. Treat medical diseases. OT/PT. HISTORY OF THE PRESENT ILLNESS: 66-y-old male patient with COPD and SOB has been having dysphagia for about 1 year. He stated he has chocking episodes from time to time especially at the beginning of eating or drinking, but after several swallow actions, chocking seemed decreased. He stated his symptoms of difficult swallowing gradually became worse in the recent months. He also noted his eye lids half drooping chronically. He stated certain medications made his dysphagia worse but he did not remember what medications were. Past Medical History Pulmonary: Asthma, Bronchitis Psych: Addictions Musculoskeletal: low back pain Past Surgical History No pertinent history Family History Non contributory. Social History Smoke: 2 packs per day ALCOHOL: none Drugs: None ALLERGY: Reviewed. MEDICATIONS: Refer to MAR REVIEW OF SYSTEMS: Constitutional: Malnutrition. Head: No traumatic brain or head injury. Skin: No edema, or rash. Ear: No infection. Eyes: No vision loss or color blindness. Nose: No bleeding or purulent discharges. Hearing: Mild hearing decrease. Neck: No recent injury. Cardiac: No DE, arrhythmia. Pulmonary: COPD. GI: No GI ulcer, GI bleeding. Urinary/genital: No dysuria, incontinence, urinary retention. Endocrinologic: No cousin face, craniofacial dysmorphism, polydactyly, goiter. Skeletomuscular: No muscular atrophy, deformity Neurological: see HP. Psychiatric: Denies drug use/abuse. Otherwise, not [id number] review of systems. PHYSICAL EXAMINATION: General appearance is in chronic distress. HEENT: Normocephalic and nontraumatic. Eyes, nose, ears, and throat are unremarkable. Neck is supple. No lymphadenopathy. No crepitus. Cardiovascular: S1, S2, regular rate and rhythm. Pulmonary: Clear to auscultation bilaterally. Abdomen: Bowel sounds are positive. Abdomen is soft, nontender, and nondistended. Extremities: No rash, lesions, or edema. No restriction of range of motion NEUROLOGICAL EXAMINATION: Alert Oriented to time, place and person. PERRL. Mild ptosis. EOMI. CN: no focal findings. Muscle tone: within normal. Muscle strength: 5- DTR: 2 UE, 0-1 at knee. Plantar reflex: Flexor response bilaterally Gait: not examined in bed. Sensory exam: no abnormal findings. No cerebellar signs elicited. F-T-N test fine. Current Medications Current Medications Current Medications Albuterol/ Ipratropium (Duoneb) 3 ml 1X ONCE NEB Last administered on 17:32; Start 05/06/17 at 17:15; Stop 05/06/17 at 17:30; Status DC Albuterol Sulfate (Ventolin Neb Soln) 5 mg 1X ONCE INH Last administered on 17:33; Start 05/06/17 at 17:15; Stop 05/06/17 at 17:30; Status DC Methylprednisolone Sodium Succinate (SOLU-Medrol 125MG VIAL) 125 mg 1X ONCE IV Last administered on 05/06/17 18:00; Start 05/06/17 at 17:15; Stop at 17:30; Status DC Ondansetron HCl (Zofran) 4 mg PRN Q8HRS PRN IV NAUSEA/VOMITING; Start at 19:45; Stop 05/07/17 at 08:39; Status DC Acetaminophen (Tylenol) 650 mg PRN Q4HRS PRN PO FEVER; Start 05/06/17 at 19:45 ; Stop 05/07/17 at 19:44; Status DC Albuterol/ Ipratropium (Duoneb) 3 ml RTQID NEB Last administered on 05/07/17 14:59; Start 05/06/17 at 20:00; Stop 05/07/17 at 19:59; Status DC Ceftriaxone Sodium 50 ml @ 100 mls/hr 1X ONCE IV ; Start 05/06/17 at 19:45; Stop 05/06/17 at 20:14; Status Cancel Azithromycin 500 mg/Sodium Chloride 250 ml @ 250 mls/hr 1X ONCE IV ; Start at 19:45; Stop 05/06/17 at 20:44; Status UNV Azithromycin 250 ml @ 250 mls/hr 1X ONCE IV ; Start 05/06/17 at 19:45; Stop 05/06/17 at 20:44; Status Cancel Guaifenesin (Robitussin Dm) 10 ml PRN Q6HRS PRN PO COUGH 1ST CHOICE; Start 04/12 at 20:00; Stop 05/07/17 at 09:32; Status DC Diphenhydramine HCl (Benadryl) 25 mg PRN QHS PRN PO INSOMNIA; Start 05/06/17 at 20:00 Azithromycin 500 mg/Sodium Chloride 250 ml @ 250 mls/hr 1X ONCE IV Last administered on 05/06/17 20:28; Start 05/06/17 at 20:00; Stop 05/06/17 at 20 :59; Status DC Ceftriaxone Sodium (Rocephin) 1 gm 1X ONCE IVP Last administered on 22:58; Start 05/06/17 at 20:00; Stop 05/06/17 at 20:01; Status DC Info (Do NOT chart on this placeholder) 1 each 1X ONCE MC ; Start 05/07/17 at 00:00; Stop 05/07/17 at 00:01; Status UNV Pneumococcal Polyvalent Vaccine (Do NOT chart on this placeholder) 1 each 1X ONCE MC ; Start 05/07/17 at 00:00; Stop 05/07/17 at 00:01; Status UNV Influenza Virus Vaccine Quadrival (Fluarix Quad [id number] Syringe) 0.5 ml ONCE ONCE VAX IM Last administered on 05/07/17 08:16; Start 05/07/17 at 09:00; Stop 05/07/17 at 09:01; Status DC Pneumococcal Polyvalent Vaccine (Pneumovax 23) 0.5 ml ONCE ONCE VAX IM Last administered on 05/07/17 08:15; Start 05/07/17 at 09:00; Stop 05/07/17 at 09 :01; Status DC Ondansetron HCl (Zofran) 4 mg PRN Q6HRS PRN IV NAUSEA/VOMITING; Start at 08:45; Stop 05/08/17 at 08:44; Status DC Guaifenesin (Robitussin Dm) 10 ml PRN Q6HRS PRN PO COUGH; Start 05/07/17 at 08 :45; Stop 05/07/17 at 08:45; Status DC Guaifenesin (Robitussin Dm) 10 ml QID PO Last administered on 05/10/17 18:22 ; Start 05/07/17 at 10:00 Nicotine (Nicoderm Cq 21mg) 1 patch PRN DAILY PRN TD SMOKING CESSATION Last administered on 05/10/17 16:43; Start 05/07/17 at 09:30 Ceftriaxone Sodium 1 gm/ Dextrose 50 ml @ 100 mls/hr Q24H IV ; Start 05/07/17 at 09:30; Status UNV Azithromycin (Zithromax) 250 mg DAILY PO Last administered on 05/10/17 09:09 ; Start 05/07/17 at 10:00 Benzonatate (Tessalon Perle) 100 mg [id number] PO Last administered on 05/10/17 14:23; Start 05/07/17 at 10:00 Enoxaparin Sodium (Lovenox 30mg Syringe) 30 mg Q24H SQ Last administered on 17:45; Start 05/07/17 at 16:00; Stop 05/08/17 at 13:22; Status DC Methylprednisolone Sodium Succinate (SOLU-Medrol 40MG VIAL) 40 mg Q8HRS IV Last administered on 05/10/17 14:19; Start 05/07/17 at 10:00; Stop 05/10/17 at 15:09; Status DC Ceftriaxone Sodium (Rocephin) 1 gm Q24H IVP Last administered on 05/09/17 20: 58; Start 05/07/17 at 21:00; Stop 05/10/17 at 15:07; Status DC Iohexol (Omnipaque 300 Mg/ml) 75 ml 1X ONCE IV Last administered on 11:02; Start 05/07/17 at 10:45; Stop 05/07/17 at 10:46; Status DC Info (Do NOT chart on this entry -- for MONITORING) 1 each PRN DAILY PRN MC SEE COMMENTS; Start 05/07/17 at 10:30; Stop 05/09/17 at 10:29; Status DC Lactobacillus Rhamnosus (Culturelle) 1 cap BID PO Last administered on 14:18; Start 05/07/17 at 21:00 Albuterol Sulfate (Ventolin Neb Soln) 2.5 mg PRN Q2HR PRN NEB SHORTNESS OF BREATH Last administered on 05/10/17 08:19; Start 05/07/17 at 23:00 Barium Sulfate (Varibar Thin Liquid Apple) 148 gm 1X ONCE PO Last administered on 05/08/17 12:19; Start 05/08/17 at 11:30; Stop 05/08/17 at 11 :31; Status DC Enoxaparin Sodium (Lovenox 40mg Syringe) 40 mg Q24H SQ Last administered on 16:43; Start 05/08/17 at 16:00 Albuterol/ Ipratropium (Duoneb) 3 ml RTQID NEB Last administered on 05/10/17 18:12; Start 05/10/17 at 16:00 Prednisone (Prednisone) 40 mg DAILY PO ; Start 05/11/17 at 09:00 Levofloxacin (Levaquin) 500 mg Q24H PO Last administered on 05/10/17 16:46; Start 05/10/17 at 15:30 Active Scripts Active Reported Advair 250-50 Diskus (Fluticasone/Salmeterol) 1 Each Disk.w.dev 1 Inh IH BID Proair Hfa Inhaler (Albuterol Sulfate) 8.5 Gm Hfa.aer.ad 1 Puff INH PRN Q6HRS PRN Allergies Allergies: Coded Allergies: No Known Drug Allergies (Unverified , 05/06/17) Vitals VITALS Vital Signs Date Time Temp Pulse Resp B/P (MAP) Pulse Ox O2 Delivery O2 Flow Rate FiO2 05/10/17 18:13 97 Nasal Cannula 2.0 05/10/17 14:49 97.9 103 18 122/75 (91) 97.9 Labs Labs Laboratory Tests Test 05/10/17 17:30 Creatine Kinase 47 U/L (39-308) Vitamin B12 Level 395 pg/mL (247-911) Thyroid Stimulating Hormone (TSH) 0.712 uIU/mL (0.358-3.74) Laboratory Tests Test 05/10/17 17:30 Creatine Kinase 47 U/L (39-308) Vitamin B12 Level 395 pg/mL (247-911) Thyroid Stimulating Hormone (TSH) 0.712 uIU/mL (0.358-3.74) JALEEL SHAH MD May 10, 2017 19:56
[2017-05-10 23:30] VITALS: BP 120/62
[2017-05-11 00:05] LABS: BARBITURATES NEG (NEG); BENZODIAZEPINES NEG (NEG); CANNABINOIDS NEG (NEG); COCAINE NEG (NEG); METHADONE NEG (NEG); OPIATES POS (NEG); PHENCYCLIDINE NEG (NEG)
[2017-05-11 03:35] VITALS: BP 109/72
[2017-05-11 07:00] VITALS: BP 117/69
[2017-05-11] MEDS: IPRATRPIUM/ALBUTEROL 0.5/2.5MG 3 ML NEBU. NEB SCH ×4 (07:40→19:42)
--- NOTE | 2017-05-11 09:56 | PDOC ---
PROGRESS NOTES Chief Complaint Chief Complaint Acute hypoxic respir failure ASSESSMENT AND PLAN: 1. COPD exacerbation: remains O2 dependent at this time 2. Tobaccoism: cont to smoke 2 ppd. cessation strongly encouraged. on patch here 3. (?aspiration) PNA: on ceftriax, azithro 4. Abnormal CT chest: several findings including a 3 cm nodule; f/u with Dr Sands in office with CT chest prior (aug 16, 11.30 am) 5. Dysphagia: silent aspiration on swallow study; SP rec. for "cont. regular diet w/ thin liquids and use of swallow strategies." etiology unclear; appreciate neuro input; W/U in progress 6. Cachexia with severe PCM: most likely 2/2 severe COPD. supplements 7. Dispo: SNF for PT/SP History of Present Illness History of Present Illness breathing much better today. in good spirits Vitals Vitals Vital Signs Date Time Temp Pulse Resp B/P (MAP) Pulse Ox O2 Delivery O2 Flow Rate FiO2 05/11/17 07:40 97 Nasal Cannula 2.0 05/11/17 07:00 98.2 87 18 117/69 (85) 98.2 Physical Exam General: Alert, Oriented X3, Cooperative, No acute distress, Other (cachectic, smoker's body habitus, coughing spells) Heart: Regular rate Lungs: Clear, Other (poor air flow) Abdomen: Normal bowel sounds, Soft, No tenderness Extremities: No clubbing Skin: No rashes Labs LABS Laboratory Tests Test 05/10/17 17:30 05/10/17 23:05 Creatine Kinase 47 U/L (39-308) Vitamin B12 Level 395 pg/mL (247-911) 25-Hydroxy Vitamin D Total 11.0 ng/mL (30-100) Thyroid Stimulating Hormone (TSH) 0.712 uIU/mL (0.358-3.74) Urine Opiates Screen Pos (NEG) Urine Methadone Screen Neg (NEG) Urine Barbiturates Neg (NEG) Urine Phencyclidine Screen Neg (NEG) Urine Amphetamine/Methamphetamine Neg (NEG) Urine Benzodiazepines Screen Neg (NEG) Urine Cocaine Screen Neg (NEG) Urine Cannabinoids Screen Neg (NEG) Urine Ethyl Alcohol Neg (NEG) Nutrition Consultation Dietary Evaluation: Recommendations by RD: Increase Calorie Intake, Protein supplementation Comments: provide ensure tid for optimum nutrition Expected Outcomes/Goals: to meet > 75% est nutr needs Malnutrition Findings: Body Fat Depletion (Non Severe: Mild Depletion Weight Status: Underweight PAUL SIMMONS MD May 11, 2017 09:56
[2017-05-11] MEDS: guaiFENesin DM 200MG/20MG 10 ML SYRUP PO SCH ×4 (09:58→20:47)
[2017-05-11] MEDS: NICOTINE 21MG PATCH. TD PRN (09:58)
[2017-05-11] MEDS: LACTOBACILLUS RHAMNOSUS GG 1 CAPSULE. PO SCH ×2 (09:58→20:47)
[2017-05-11] MEDS: predniSONE 20 MG TABLET PO SCH (09:58)
[2017-05-11] MEDS: BENZONATATE 100 MG CAPSULE. PO SCH ×3 (09:58→20:47)
[2017-05-11] MEDS: AZITHROMYCIN 250 MG TABLET. PO SCH (09:59)
--- NOTE | 2017-05-11 10:19 | PDOC ---
PULMONARY PROGRESS NOTES Subjective PT BETTER LESS SOA Vitals Vital Signs Date Time Temp Pulse Resp B/P (MAP) Pulse Ox O2 Delivery O2 Flow Rate FiO2 05/11/17 07:40 97 Nasal Cannula 2.0 05/11/17 07:00 98.2 87 18 117/69 (85) 98.2 ROS: No Nausea, No Chest Pain, No Abdominal Pain, No Increase Cough General: Alert, No acute distress Lungs: Other (poor air flow) Cardiovascular: S1, S2 Abdomen: Soft Neuro Exam: Alert Extremities: No Edema Skin: Warm Labs Laboratory Tests Test 05/10/17 17:30 05/10/17 23:05 Creatine Kinase 47 U/L (39-308) Vitamin B12 Level 395 pg/mL (247-911) 25-Hydroxy Vitamin D Total 11.0 ng/mL (30-100) Thyroid Stimulating Hormone (TSH) 0.712 uIU/mL (0.358-3.74) Urine Opiates Screen Pos (NEG) Urine Methadone Screen Neg (NEG) Urine Barbiturates Neg (NEG) Urine Phencyclidine Screen Neg (NEG) Urine Amphetamine/Methamphetamine Neg (NEG) Urine Benzodiazepines Screen Neg (NEG) Urine Cocaine Screen Neg (NEG) Urine Cannabinoids Screen Neg (NEG) Urine Ethyl Alcohol Neg (NEG) Laboratory Tests Test 05/10/17 17:30 05/10/17 23:05 Creatine Kinase 47 U/L (39-308) Vitamin B12 Level 395 pg/mL (247-911) 25-Hydroxy Vitamin D Total 11.0 ng/mL (30-100) Thyroid Stimulating Hormone (TSH) 0.712 uIU/mL (0.358-3.74) Urine Opiates Screen Pos (NEG) Urine Methadone Screen Neg (NEG) Urine Barbiturates Neg (NEG) Urine Phencyclidine Screen Neg (NEG) Urine Amphetamine/Methamphetamine Neg (NEG) Urine Benzodiazepines Screen Neg (NEG) Urine Cocaine Screen Neg (NEG) Urine Cannabinoids Screen Neg (NEG) Urine Ethyl Alcohol Neg (NEG) Medications Active Scripts Medications Dose Route/Sig Max Daily Dose Days Date Category Advair 250-50 Diskus (Fluticasone/Salmeterol) 1 Each Disk.w.dev 1 Inh IH BID 05/07/17 Reported Proair Hfa Inhaler (Albuterol Sulfate) 8.5 Gm Hfa.aer.ad 1 Puff INH PRN Q6HRS PRN 05/07/17 Reported Impression . 1. Acute respiratory failure, present upon admission. 2. Acute exacerbation of chronic obstructive pulmonary disease, present upon admission. 3. Abnormal CT of the chest revealing several findings including a 3 cm irregular pleural based density in the right upper lobe. 3 mm noncalcified nodule in the right middle lobe. 4. Bibasilar infiltrates compatible with pneumonia, possibly aspiration, Gram-negative. 5. Chronic obstructive pulmonary disease. Plan . 1. PO antibiotics and breathing treatments. 2. Repeat CT of the chest in 3 months. 3. f/u speech therapist, PO diet 4. Needs help. Homeless, lives in his car 5. f/u with Tiffani Sands in office with ct chest prior (aug 16, 11.30 am) JOSE CHRISTIANSON MD May 11, 2017 10:19
[2017-05-11 11:00] VITALS: BP 122/72
[2017-05-11] MEDS: CHOLECALCIFEROL (VITAMIN D3) 5,000 UNIT CAPSULE PO SCH (11:43)
[2017-05-11] MEDS: CALCIUM CARBONATE 500 MG TABLET PO SCH ×2 (13:46→17:43)
[2017-05-11 15:00] VITALS: BP 108/58
[2017-05-11] MEDS ORDERED: GADOBUTROL 7.5 MMOL/7.5 ML VIAL IV ONE (15:15)
--- NOTE | 2017-05-11 16:08 | RAD ---
MRI Brain with and without contrast History:DYSPHAGIA, BILATERAL ARM WEAKNESS, NECK PAIN Technique: Multiplanar, multi sequential pre and postcontrast MR imaging was performed of the brain. Contrast: 5 cc Gadavist Comparison: None Findings: There is no evidence of recent infarct or cytotoxic edema. There is mild generalized supratentorial atrophy, ventricular size within normal limits.There is no significant midline shift, intraaxial mass effect, or focal abnormal extra-axial fluid collection. There are a few tiny scattered foci of T2 and FLAIR hyperintense abnormality of the supratentorial white matter greatest of the left frontal parietal lobes. There is no significant hemosiderin deposition of the brain parenchyma. There is no nodular parenchymal or leptomeningeal enhancement. There is preservation of the major intracranial flow-voids at the skull base. The cerebellar tonsils are normal in location. There is no significant abnormality of the pineal gland or pituitary gland. There is small right maxillary sinus which is mostly opacified, very minimal left maxillary sinus mucosal thickening and negligible patchy ethmoid air cell and frontal sinus mucosal thickening. There is some downward deviation of the right inferior orbital wall. The mastoid air cells are aerated. There is preserved marrow signal of the clivus. There is degenerative disc disease of visualized superior cervical spine. There is likely [id number] spinal stenosis C2-3, to a somewhat lesser degree at C3-4. Impression: 1. There is no evidence of recent infarct or abnormal intracranial enhancement. There is generalized supratentorial atrophy. 2. There is small right maxillary sinus which is mostly opacified, constellation of findings which may be seen with silent sinus syndrome. 3. There is likely [id number]-mp-[id number] spinal stenosis C2-3 and to lesser degree at C3-4. Electronically signed by: Dimitry Solares MD (05/11/2017 4:04 PM) [email or web address]
--- NOTE | 2017-05-11 16:17 | RAD ---
MRI Cervical Spine with and without contrast History:BILATERAL ARM WEAKNESS, NECK PAIN Technique: Multiplanar, multi sequential pre and postcontrast MR imaging was performed of the cervical spine. Contrast: 5 cc Gadavist Comparison: None Findings: There is motion degradation, limits accurate evaluation of the neural foramina. Cervical vertebral body stature is maintained. There is grade 1 anterior spondylolisthesis C3-4 and C7-T1, grade 1 posterior subluxation C4 relative to C5. Cervical cord caliber is within normal limits without convincing focal signal abnormality allowing for mild motion artifact. There is multilevel fairly advanced degenerative disc disease C2-3, C4-5, C5-C6, C6-7, to a somewhat lesser degree at C3-4, minimally at C7-T1. There is some variable amorphous endplate edema greatest at C3-6-7, also of visualized inferior thoracic levels probably reactive/degenerative in etiology. There is mild reversal of the lordotic curvature centered at C3-C4. There is nerve root sleeve cyst in the right T1-T2 neural foramen. C2-C3: There is moderate to severe left greater than right facet degenerative change. There is buckling of the ligament flavum. There is posterior disc osteophyte complex and bulge. Central canal is narrowed to about 7 mm. There is likely mild narrowing of the left neural foramen, right neural foramen not significantly narrowed. C3-C4: There is fairly severe left and mild right facet hypertrophic change. There is negligible disc osteophyte complex. Central canal is narrowed to approximately 8 to 9 mm. There is probable fairly severe narrowing of the left neural foramen, also fairly severe narrowing of the right neural foramen in part from uncovertebral degenerative change. C4-C5: There is disc osteophyte complex and bulge superimposed on the posteriorly subluxed C4 vertebral body margin. There is indentation upon the ventral thecal sac greater in the right lateral recess. Central canal is narrowed to 5 to 6 mm with a somewhat greater degree of right lateral recess stenosis. There is uncovertebral degenerative change greater on the right. There is fairly severe narrowing of the right neural foramen, likely overall mild narrowing on the left. C5-C6: There is minimal disc osteophyte complex somewhat greater in the right lateral recess. Central canal is narrowed to 8 to 9 mm with a greater degree of right lateral recess stenosis. There is bilateral facet degenerative change. Left neural foramen is adequate. Right uncovertebral degenerative change contributes to fairly severe narrowing of the right neural foramen. C6-C7: There is mild buckling of the ligamentum flavum. There is minimal disc osteophyte complex. Central canal is narrowed to 7 to 8 mm. There is uncovertebral degenerative change bilaterally. There is fairly severe, left greater than right neural foramina compromise. C7-T1: Spinal canal is adequate. There is bilateral facet degenerative change. Neural foramina are not significantly narrowed. Impression: 1. There is spinal stenosis to 5 to 6 mm at C4-5, to a somewhat lesser degree at other levels other than sparing C7-T1. 2. There is multilevel significant cervical neural foramina compromise due to facet and uncovertebral degenerative change. Findings are greatest bilaterally at C6-7 and C3-4 and on the right at C5-C6 and C4-5. 3. There is multilevel advanced degenerative disc disease. There is multilevel spondylosis. There is abnormal alignment as stated. Electronically signed by: Dimitry Solares MD (05/11/2017 4:14 PM) [email or web address]
[2017-05-11] MEDS: ENOXAPARIN 40 MG/0.4 ML SYRINGE. SQ SCH (16:25)
--- NOTE | 2017-05-11 16:28 | PDOC ---
PROGRESS NOTES Assessment Assessment Chronic dysphagia x 1 year, worse in recent months. SOB COPD C-spine stenosis, C4-5. Vit D deficiency. Substance use/abuse. No evidence of brain etiology to explain his dysphagia. RECOMMENDATIONS/PLAN: Vit D and Ca++ supplement. MG panel maybe needed but wait for other studies first. Swallow evaluation. Treat medical diseases. OT/PT. Vit D 25OH: 11 low. HISTORY OF THE PRESENT ILLNESS: 66-y-old male patient with COPD and SOB has been having dysphagia for about 1 year. He stated he has chocking episodes from time to time especially at the beginning of eating or drinking, but after several swallow actions, chocking seemed decreased. He stated his symptoms of difficult swallowing gradually became worse in the recent months. He also noted his eye lids half drooping chronically. He stated certain medications made his dysphagia worse but he did not remember what medications were. Past Medical History Pulmonary: Asthma, Bronchitis Psych: Addictions Musculoskeletal: low back pain Past Surgical History No pertinent history Family History Non contributory. Social History Smoke: 2 packs per day ALCOHOL: none Drugs: None ALLERGY: Reviewed. MEDICATIONS: Refer to MAR REVIEW OF SYSTEMS: Constitutional: Malnutrition. Head: No traumatic brain or head injury. Skin: No edema, or rash. Ear: No infection. Eyes: No vision loss or color blindness. Nose: No bleeding or purulent discharges. Hearing: Mild hearing decrease. Neck: No recent injury. Cardiac: No AK, arrhythmia. Pulmonary: COPD. GI: No GI ulcer, GI bleeding. Urinary/genital: No dysuria, incontinence, urinary retention. Endocrinologic: No cousin face, craniofacial dysmorphism, polydactyly, goiter. Skeletomuscular: No muscular atrophy, deformity Neurological: see HP. Psychiatric: Denies drug use/abuse. Otherwise, not [id number] review of systems. PHYSICAL EXAMINATION: General appearance is in chronic distress. HEENT: Normocephalic and nontraumatic. Eyes, nose, ears, and throat are unremarkable. Neck is supple. No lymphadenopathy. No crepitus. Cardiovascular: S1, S2, regular rate and rhythm. Pulmonary: Clear to auscultation bilaterally. Abdomen: Bowel sounds are positive. Abdomen is soft, nontender, and nondistended. Extremities: No rash, lesions, or edema. No restriction of range of motion NEUROLOGICAL EXAMINATION: Alert Oriented to time, place and person. PERRL. Mild ptosis. EOMI. CN: no focal findings. Muscle tone: within normal. Muscle strength: 5- DTR: 2 UE, 0-1 at knee. Plantar reflex: Flexor response bilaterally Gait: not examined in bed. Sensory exam: no abnormal findings. No cerebellar signs elicited. F-T-N test fine. Objective Objective Vital Signs Date Time Temp Pulse Resp B/P (MAP) Pulse Ox O2 Delivery O2 Flow Rate FiO2 05/11/17 15:00 98.2 107 17 108/58 (75) 96 Nasal Cannula 2.0 98.2 Intake and Output 05/11/17 07:00 Intake Total 1680 ml Output Total 1 ml Balance 1679 ml Intake Oral 1680 ml Stool Total 1 ml # Voids 5 # Bowel Movements 1 Vitals Signs Vitals VS - Last 72 Hours, by Label Date Time Temp Pulse Resp B/P (MAP) Pulse Ox O2 Delivery O2 Flow Rate FiO2 05/11/17 15:00 98.2 107 17 108/58 (75) 96 Nasal Cannula 2.0 98.2 05/11/17 11:11 Nasal Cannula 2.0 05/11/17 11:00 98.5 103 18 122/72 (89) 97 Nasal Cannula 2.0 98.5 05/11/17 07:40 97 Nasal Cannula 2.0 05/11/17 07:00 98.2 87 18 117/69 (85) 100 Nasal Cannula 2.0 98.2 05/11/17 03:35 97.9 92 16 109/72 (84) 96 Nasal Cannula 2.0 97.9 05/10/17 23:30 97.4 109 20 120/62 (81) 94 Nasal Cannula 2.0 97.4 05/10/17 20:00 Nasal Cannula 2.0 05/10/17 19:43 97.9 113 20 120/76 (91) 95 Nasal Cannula 2.0 97.9 05/10/17 18:13 97 Nasal Cannula 2.0 05/10/17 14:49 97.9 103 18 122/75 (91) 97 Room Air 97.9 05/10/17 11:24 98.1 110 18 108/62 (77) 97 Nasal Cannula 2.0 98.1 05/10/17 08:20 98 Nasal Cannula 2.0 05/10/17 07:55 98.5 83 18 116/74 (88) 99 Nasal Cannula 2.0 98.5 05/10/17 07:51 Nasal Cannula 2.0 Laboratory Laboratory Laboratory Tests Test 05/10/17 17:30 05/10/17 23:05 Creatine Kinase 47 U/L (39-308) Vitamin B12 Level 395 pg/mL (247-911) 25-Hydroxy Vitamin D Total 11.0 ng/mL (30-100) Thyroid Stimulating Hormone (TSH) 0.712 uIU/mL (0.358-3.74) Urine Opiates Screen Pos (NEG) Urine Methadone Screen Neg (NEG) Urine Barbiturates Neg (NEG) Urine Phencyclidine Screen Neg (NEG) Urine Amphetamine/Methamphetamine Neg (NEG) Urine Benzodiazepines Screen Neg (NEG) Urine Cocaine Screen Neg (NEG) Urine Cannabinoids Screen Neg (NEG) Urine Ethyl Alcohol Neg (NEG) Microbiology 05/07/17 - Final, Complete 05/07/17 - Final, Complete 05/07/17 - Final, Complete 05/07/17 Gram Stain Evaluation - Final, Complete 05/07/17 Sputum Culture - Final, Complete 05/07/17 Sputum Result 1 - Final, Complete Medication Medications Current Medications Calcium Carbonate/ Glycine (Oscal) 500 mg TIDAFTMEAL PO Last administered on 13:46; Start 05/11/17 at 13:00 Gadobutrol (Gadavist) 5 mmol 1X ONCE IV ; Start 05/11/17 at 15:15; Stop 05/11 at 15:16; Status DC Prednisone (Prednisone) 40 mg DAILY PO Last administered on 05/11/17 09:58; Start 05/11/17 at 09:00 Vitamin D (Vitamin D3) 5,000 unit DAILY PO Last administered on 05/11/17 11: 43; Start 05/11/17 at 11:00 Comment Review of Relevant I have reviewed the following items rigo (where applicable) has been applied. JALEEL SHAH MD May 11, 2017 16:28
[2017-05-11 19:39] VITALS: BP 113/67
[2017-05-11 23:13] VITALS: BP 114/65
[2017-05-12 03:32] VITALS: BP 114/68
[2017-05-12 06:47] LABS: CALCIUM 8.7 mg/dL (8.5-10.1); CREATININE 0.4 mg/dL (0.7-1.3); GFR 215.2; POTASSIUM 4.3 mmol/L (3.5-5.1)
[2017-05-12 06:58] LABS: BASO % 0 % (0-3); EOS % 1 % (0-3); HEMATOCRIT 40.5 % (39.0-53.0); HEMOGLOBIN 13.1 g/dL (13.0-17.5); LYMPH # 1.1 x10^3/uL (1.0-4.8); LYMPH % 13 % (24-48); MEAN CORPUSCULAR HEMOGLOBIN 31 pg (25-35); MEAN CORPUSCULAR HGB CONC 32 g/dL (31-37); MEAN CORPUSCULAR VOLUME 97 fL (79-100); MONO % 12 % (0-9); NEUT % 74 % (31-73); PLATELET COUNT 379 x10^3/uL (140-400); RED BLOOD COUNT 4.19 x10^6/uL (4.30-5.70); RED CELL DISTRIBUTION WIDTH 12.5 % (11.5-14.5); WHITE BLOOD COUNT 8.6 x10^3/uL (4.0-11.0)
[2017-05-12 07:24] VITALS: BP 106/67
[2017-05-12] MEDS: IPRATRPIUM/ALBUTEROL 0.5/2.5MG 3 ML NEBU. NEB SCH ×3 (07:59→16:44)
[2017-05-12] MEDS: CALCIUM CARBONATE 500 MG TABLET PO SCH ×2 (08:57→13:21)
[2017-05-12] MEDS: guaiFENesin DM 200MG/20MG 10 ML SYRUP PO SCH ×2 (08:57→13:21)
[2017-05-12] MEDS: BENZONATATE 100 MG CAPSULE. PO SCH ×2 (08:57→13:21)
[2017-05-12] MEDS: predniSONE 20 MG TABLET PO SCH (08:57)
[2017-05-12] MEDS: LACTOBACILLUS RHAMNOSUS GG 1 CAPSULE. PO SCH (08:57)
[2017-05-12] MEDS: CHOLECALCIFEROL (VITAMIN D3) 5,000 UNIT CAPSULE PO SCH (08:57)
[2017-05-12] MEDS: NICOTINE 21MG PATCH. TD PRN (08:58)
--- NOTE | 2017-05-12 09:39 | PDOC ---
PULMONARY PROGRESS NOTES Subjective PT BETTER LESS SOA Vitals Vital Signs Date Time Temp Pulse Resp B/P (MAP) Pulse Ox O2 Delivery O2 Flow Rate FiO2 05/12/17 07:59 97 Nasal Cannula 2.0 05/12/17 07:24 98.0 91 17 106/67 (80) 98.0 ROS: No Nausea, No Chest Pain, No Abdominal Pain, No Increase Cough General: Alert, No acute distress Lungs: Other (poor air flow) Cardiovascular: S1, S2 Abdomen: Soft Neuro Exam: Alert Extremities: No Edema Skin: Warm Labs Laboratory Tests Test 05/10/17 17:30 05/10/17 23:05 05/12/17 05:35 Creatine Kinase 47 U/L (39-308) Vitamin B12 Level 395 pg/mL (247-911) 25-Hydroxy Vitamin D Total 11.0 ng/mL (30-100) Thyroid Stimulating Hormone (TSH) 0.712 uIU/mL (0.358-3.74) Urine Opiates Screen Pos (NEG) Urine Methadone Screen Neg (NEG) Urine Barbiturates Neg (NEG) Urine Phencyclidine Screen Neg (NEG) Urine Amphetamine/Methamphetamine Neg (NEG) Urine Benzodiazepines Screen Neg (NEG) Urine Cocaine Screen Neg (NEG) Urine Cannabinoids Screen Neg (NEG) Urine Ethyl Alcohol Neg (NEG) White Blood Count 8.6 x10^3/uL (4.0-11.0) Red Blood Count 4.19 x10^6/uL (4.30-5.70) Hemoglobin 13.1 g/dL (13.0-17.5) Hematocrit 40.5 % (39.0-53.0) Mean Corpuscular Volume 97 fL (79-100) Mean Corpuscular Hemoglobin 31 pg (25-35) Mean Corpuscular Hemoglobin Concent 32 g/dL (31-37) Red Cell Distribution Width 12.5 % (11.5-14.5) Platelet Count 379 x10^3/uL (140-400) Neutrophils (%) (Auto) 74 % (31-73) Lymphocytes (%) (Auto) 13 % (24-48) Monocytes (%) (Auto) 12 % (0-9) Eosinophils (%) (Auto) 1 % (0-3) Basophils (%) (Auto) 0 % (0-3) Neutrophils # (Auto) 6.4 x10^3uL (1.8-7.7) Lymphocytes # (Auto) 1.1 x10^3/uL (1.0-4.8) Monocytes # (Auto) 1.0 x10^3/uL (0.0-1.1) Eosinophils # (Auto) 0.1 x10^3/uL (0.0-0.7) Basophils # (Auto) 0.0 x10^3/uL (0.0-0.2) Sodium Level 140 mmol/L (136-145) Potassium Level 4.3 mmol/L (3.5-5.1) Chloride Level 100 mmol/L (98-107) Carbon Dioxide Level 40 mmol/L (21-32) Anion Gap 0 (6-14) Blood Urea Nitrogen 16 mg/dL (8-26) Creatinine 0.4 mg/dL (0.7-1.3) Estimated GFR (Cockcroft-Gault) 215.2 Glucose Level 81 mg/dL (70-99) Calcium Level 8.7 mg/dL (8.5-10.1) Laboratory Tests Test 05/12/17 05:35 White Blood Count 8.6 x10^3/uL (4.0-11.0) Red Blood Count 4.19 x10^6/uL (4.30-5.70) Hemoglobin 13.1 g/dL (13.0-17.5) Hematocrit 40.5 % (39.0-53.0) Mean Corpuscular Volume 97 fL (79-100) Mean Corpuscular Hemoglobin 31 pg (25-35) Mean Corpuscular Hemoglobin Concent 32 g/dL (31-37) Red Cell Distribution Width 12.5 % (11.5-14.5) Platelet Count 379 x10^3/uL (140-400) Neutrophils (%) (Auto) 74 % (31-73) Lymphocytes (%) (Auto) 13 % (24-48) Monocytes (%) (Auto) 12 % (0-9) Eosinophils (%) (Auto) 1 % (0-3) Basophils (%) (Auto) 0 % (0-3) Neutrophils # (Auto) 6.4 x10^3uL (1.8-7.7) Lymphocytes # (Auto) 1.1 x10^3/uL (1.0-4.8) Monocytes # (Auto) 1.0 x10^3/uL (0.0-1.1) Eosinophils # (Auto) 0.1 x10^3/uL (0.0-0.7) Basophils # (Auto) 0.0 x10^3/uL (0.0-0.2) Sodium Level 140 mmol/L (136-145) Potassium Level 4.3 mmol/L (3.5-5.1) Chloride Level 100 mmol/L (98-107) Carbon Dioxide Level 40 mmol/L (21-32) Anion Gap 0 (6-14) Blood Urea Nitrogen 16 mg/dL (8-26) Creatinine 0.4 mg/dL (0.7-1.3) Estimated GFR (Cockcroft-Gault) 215.2 Glucose Level 81 mg/dL (70-99) Calcium Level 8.7 mg/dL (8.5-10.1) Medications Active Scripts Medications Dose Route/Sig Max Daily Dose Days Date Category Advair 250-50 Diskus (Fluticasone/Salmeterol) 1 Each Disk.w.dev 1 Inh IH BID 05/07/17 Reported Proair Hfa Inhaler (Albuterol Sulfate) 8.5 Gm Hfa.aer.ad 1 Puff INH PRN Q6HRS PRN 05/07/17 Reported Impression . 1. Acute respiratory failure, present upon admission. 2. Acute exacerbation of chronic obstructive pulmonary disease, present upon admission. 3. Abnormal CT of the chest revealing several findings including a 3 cm irregular pleural based density in the right upper lobe. 3 mm noncalcified nodule in the right middle lobe. 4. Bibasilar infiltrates compatible with pneumonia, possibly aspiration, Gram-negative. 5. Chronic obstructive pulmonary disease. Plan . 1. PO antibiotics and breathing treatments. 2. Repeat CT of the chest in 3 months. 3. f/u speech therapist, PO diet 4. Needs SS help. Homeless, lives in his car 5. f/u with DR Sands in office with ct chest prior (aug 16, 11.30 am) JOSE CHRISTIANSON MD May 12, 2017 09:39
[2017-05-12 10:43] VITALS: BP 112/70
[2017-05-12 14:53] VITALS: BP 109/65
--- NOTE | 2017-05-12 17:11 | PDOC ---
PROGRESS NOTES Assessment Assessment Chronic dysphagia x 1 year, worse in recent months. SOB COPD C-spine stenosis, C4-5. Vit D deficiency. Substance use/abuse. No evidence of brain etiology to explain his dysphagia. No evidence of CVA or brain tumor at the present time. No evidence of C-spine cord disease. RECOMMENDATIONS/PLAN: Vit D and Ca++ supplement. MG panel as outpatient base. Swallow evaluation. Treat medical diseases. OT/PT. Vit D 25OH: 11 low. HISTORY OF THE PRESENT ILLNESS: 66-y-old male patient with COPD and SOB has been having dysphagia for about 1 year. He stated he has chocking episodes from time to time especially at the beginning of eating or drinking, but after several swallow actions, chocking seemed decreased. He stated his symptoms of difficult swallowing gradually became worse in the recent months. He also noted his eye lids half drooping chronically. He stated certain medications made his dysphagia worse but he did not remember what medications were. Past Medical History Pulmonary: Asthma, Bronchitis Psych: Addictions Musculoskeletal: low back pain Past Surgical History No pertinent history Family History Non contributory. Social History Smoke: 2 packs per day ALCOHOL: none Drugs: None ALLERGY: Reviewed. MEDICATIONS: Refer to MAR REVIEW OF SYSTEMS: Constitutional: Malnutrition. Head: No traumatic brain or head injury. Skin: No edema, or rash. Ear: No infection. Eyes: No vision loss or color blindness. Nose: No bleeding or purulent discharges. Hearing: Mild hearing decrease. Neck: No recent injury. Cardiac: No MS, arrhythmia. Pulmonary: COPD. GI: No GI ulcer, GI bleeding. Urinary/genital: No dysuria, incontinence, urinary retention. Endocrinologic: No cousin face, craniofacial dysmorphism, polydactyly, goiter. Skeletomuscular: No muscular atrophy, deformity Neurological: see HP. Psychiatric: Denies drug use/abuse. Otherwise, not -tchfv review of systems. PHYSICAL EXAMINATION: General appearance is in chronic distress. HEENT: Normocephalic and nontraumatic. Eyes, nose, ears, and throat are unremarkable. Neck is supple. No lymphadenopathy. No crepitus. Cardiovascular: S1, S2, regular rate and rhythm. Pulmonary: Clear to auscultation bilaterally. Abdomen: Bowel sounds are positive. Abdomen is soft, nontender, and nondistended. Extremities: No rash, lesions, or edema. No restriction of range of motion NEUROLOGICAL EXAMINATION: Alert Oriented to time, place and person. PERRL. Mild ptosis. EOMI. CN: no focal findings. Muscle tone: within normal. Muscle strength: 5- DTR: 2 UE, 0-1 at knee. Plantar reflex: Flexor response bilaterally Gait: not examined in bed. Sensory exam: no abnormal findings. No cerebellar signs elicited. F-T-N test fine. Objective Objective Vital Signs Date Time Temp Pulse Resp B/P (MAP) Pulse Ox O2 Delivery O2 Flow Rate FiO2 05/12/17 16:45 Nasal Cannula 2.0 05/12/17 14:53 98.8 90 18 109/65 (80) 97 98.8 Intake and Output 05/12/17 07:00 Intake Total 690 ml Balance 690 ml Intake Oral 690 ml # Voids 4 # Bowel Movements 2 Vitals Signs Vitals VS - Last 72 Hours, by Label Date Time Temp Pulse Resp B/P (MAP) Pulse Ox O2 Delivery O2 Flow Rate FiO2 05/12/17 16:45 Nasal Cannula 2.0 05/12/17 14:53 98.8 90 18 109/65 (80) 97 Room Air 2.0 98.8 05/12/17 11:41 95 Nasal Cannula 2.0 05/12/17 10:43 97.9 95 18 112/70 (84) 96 Room Air 2.0 97.9 05/12/17 08:00 Nasal Cannula 2.0 05/12/17 07:59 97 Nasal Cannula 2.0 05/12/17 07:24 98.0 91 17 106/67 (80) 98 Room Air 2.0 98.0 05/12/17 03:32 98.6 71 18 114/68 (83) 96 Nasal Cannula 2.0 98.6 05/11/17 23:13 98.4 98 20 114/65 (81) 97 Room Air 2.0 98.4 05/11/17 19:51 Nasal Cannula 2.0 05/11/17 19:42 97 Nasal Cannula 2.0 05/11/17 19:39 98.3 107 20 113/67 (82) 97 Nasal Cannula 2.0 98.3 05/11/17 15:00 98.2 107 17 108/58 (75) 96 Nasal Cannula 2.0 98.2 05/11/17 11:11 Nasal Cannula 2.0 05/11/17 11:00 98.5 103 18 122/72 (89) 97 Nasal Cannula 2.0 98.5 05/11/17 08:30 Nasal Cannula 2.0 05/11/17 07:40 97 Nasal Cannula 2.0 05/11/17 07:00 98.2 87 18 117/69 (85) 100 Nasal Cannula 2.0 98.2 Laboratory Laboratory Laboratory Tests Test 05/12/17 05:35 White Blood Count 8.6 x10^3/uL (4.0-11.0) Red Blood Count 4.19 x10^6/uL (4.30-5.70) Hemoglobin 13.1 g/dL (13.0-17.5) Hematocrit 40.5 % (39.0-53.0) Mean Corpuscular Volume 97 fL (79-100) Mean Corpuscular Hemoglobin 31 pg (25-35) Mean Corpuscular Hemoglobin Concent 32 g/dL (31-37) Red Cell Distribution Width 12.5 % (11.5-14.5) Platelet Count 379 x10^3/uL (140-400) Neutrophils (%) (Auto) 74 % (31-73) Lymphocytes (%) (Auto) 13 % (24-48) Monocytes (%) (Auto) 12 % (0-9) Eosinophils (%) (Auto) 1 % (0-3) Basophils (%) (Auto) 0 % (0-3) Neutrophils # (Auto) 6.4 x10^3uL (1.8-7.7) Lymphocytes # (Auto) 1.1 x10^3/uL (1.0-4.8) Monocytes # (Auto) 1.0 x10^3/uL (0.0-1.1) Eosinophils # (Auto) 0.1 x10^3/uL (0.0-0.7) Basophils # (Auto) 0.0 x10^3/uL (0.0-0.2) Sodium Level 140 mmol/L (136-145) Potassium Level 4.3 mmol/L (3.5-5.1) Chloride Level 100 mmol/L (98-107) Carbon Dioxide Level 40 mmol/L (21-32) Anion Gap 0 (6-14) Blood Urea Nitrogen 16 mg/dL (8-26) Creatinine 0.4 mg/dL (0.7-1.3) Estimated GFR (Cockcroft-Gault) 215.2 Glucose Level 81 mg/dL (70-99) Calcium Level 8.7 mg/dL (8.5-10.1) Microbiology 05/07/17 - Final, Complete 05/07/17 - Final, Complete 05/07/17 - Final, Complete 05/07/17 Gram Stain Evaluation - Final, Complete 05/07/17 Sputum Culture - Final, Complete 05/07/17 Sputum Result 1 - Final, Complete Comment Review of Relevant I have reviewed the following items rigo (where applicable) has been applied. JALEEL SHAH MD May 12, 2017 17:11
--- NOTE | 2017-05-14 18:57 | DS ---
DATE OF DISCHARGE: 05/12/2017 CHIEF COMPLAINT: Acute hypoxic respiratory failure. HOSPITAL COURSE: The patient is a 66-year-old cachectic gentleman with COPD who presented to the Emergency Room with exacerbation of his lung disease. He improved slowly with IV steroids, which were later switched to p.o. as well as regular nebulizers and supplemental O2. He was seen by Pulmonology and further followup was arranged. He significantly improved in his respiratory status prior to discharge. However, on CT chest he was found with several abnormal findings including a 3 cm nodule which requires further followup in the very avid smoker. He was noted to have some swallowing difficulties, which was evaluated by swallow study. He was shown to have silent aspiration, but nevertheless a regular diet with thin liquids, was permitted with proper use of a swallow strategies. As etiology of this was somewhat unclear and seemed incongruent with COPD alone, Neurology consult was obtained. Workup was ongoing at time of discharge. The patient will follow up on an outpatient basis. PHYSICAL EXAMINATION: VITAL SIGNS: Blood pressure of 117/69, heart rate of 87, respiratory rate at 18. He is afebrile. GENERAL: This is a cachectic 66-year-old gentleman, alert and oriented, in no acute distress. LUNGS: Clear without wheezes. HEART: Has regular rate and rhythm. ABDOMEN: Cachectic, positive bowel sounds. EXTREMITIES: Show no edema. DISCHARGE DISPOSITION: To rehabilitation. DISCHARGE CONDITION: Improved. DISCHARGE MEDICATIONS: Please refer to MAR. DISCHARGE INSTRUCTIONS: The patient will follow up with Pulmonology as arranged. DISCHARGE DIAGNOSES: Chronic obstructive pulmonary disease exacerbation. Greater than 30 minutes were spent in arranging discharge. PAUL SIMMONS MD DR: MAAR/nts JOB#: [id number] / [id number] OMAR
== END 2017-05-12 17:21 | DRG 177 ==
LOC: ER 16:30 → 6 SOUTH 18:47
PROVIDERS: ADMIT Internal Medicine; ATTEND Internal Medicine
DX: J69.0 Pneumonitis due to inhalation of food and vomit (principal); J96.01 Acute respiratory failure with hypoxia; E43 Unspecified severe protein-calorie malnutrition; J44.0 Chronic obstructive pulmonary disease with (acute) lower respiratory infection; Z68.1 Body mass index [BMI] 19.9 or less, adult; J44.1 Chronic obstructive pulmonary disease with (acute) exacerbation; Z99.81 Dependence on supplemental oxygen; M48.02 Spinal stenosis, cervical region; E55.9 Vitamin D deficiency, unspecified; F19.11 Other psychoactive substance abuse, in remission; F17.210 Nicotine dependence, cigarettes, uncomplicated; Z59.0 Homelessness
CPT/HCPCS: 36415; 70553; 71010; 71260; 72156; 74230; 80048; 80053; 80307; 82306; 82550; 82607; 83880; 84443; 84484; 85007; 85025; 85610; 85730; 87070; 87205; 90686; 90732; 93005; 94250; 94640; 94760; 96374; A9585; J0456; J0696; J1650; J2920; J2930; J7050; J7512; J7613; J7620; Q0144; Q9967; 92526; 92610; 92611; 97110; 97116; 97530; 97535; 99285-25; G0479; J7030